=== PATIENT | male | born 1965 | race Caucasian/White ===

== ENCOUNTER 2017-03-07 20:12 | Emergency (ER) | payer OTHER ==
[2017-03-07 20:47] VITALS: BP 119/81
[2017-03-07] MEDS ORDERED: HYDROcodone/ACETAMIN 5-325 MG* 1 TAB PO ONE (21:42)
--- NOTE | 2017-03-07 22:03 | UC ---
Sheldon Hairston Erika, scribed for Kimberly Kelly MD on 03/07/17 at 2124 . Hip/Pelvis Pain - HPI Summary HPI Summary: Patient is a 51-year-old male presenting to [facility] with his female platonic friend [place] with a CC of pain at the right sciatic notch. Patient reports he has had chronic pain in the right hip, and has a follow up appointment on [address] Abdullahi for this - he reports a "tear in the leg." Last week, the right hip pain worsened, and he also developed groin pain. Patient reports pain in the bilateral testicles, bilateral groin, and right buttocks. He states pain is severe enough that it "takes his breath away." Pt denies SOB or chest pain. Hx stroke at age 42. FHx stroke. - History Of Current Complaint Chief Complaint: UCGeneralIllness Stated Complaint: HIP,LEG,GROIN PAIN,SOB Time Seen by Provider: 03/07/17 21:20 Hx Obtained From: Patient, Family/Head Of Maintenance - [place] Onset/Duration: Gradual Onset, Lasting Weeks, Worse Since - 1 week Timing: Constant Severity Initially: Mild Severity Currently: Moderate Pain Intensity: 10 Pain Scale Used: 0-10 Numeric Location: Discrete At: - R hip, groin, testicles, buttocks Character Of Pain: Sharp Alleviating Factor(s): Nothing Associated Signs And Symptoms: Positive: Other - "takes his breath away" - Risk Factors Septic Arthritis Risk Factor: Negative - Allergies/Home Medications Allergies/Adverse Reactions: Allergies Allergy/AdvReac Type Severity Reaction Status Date / Time Buspirone [From Buspar] Allergy Tinnitus Verified 03/07/17 20:33 Home Medications: Home Medications Acetaminophen TAB* [Tylenol TAB*] 1,000 mg PO Q4H PRN 03/07/17 [History Confirmed 03/07/17] PMH/Surg Hx/FS Hx/Imm Hx Endocrine History Of: Denies: Diabetes, Thyroid Disease Cardiovascular History Of: Denies: Cardiac Disorders, Hypertension, Pacemaker/ICD Respiratory History Of: Reports: COPD Denies: Asthma GI/ History Of: Denies: Gastroesophageal Reflux, Renal Disease Neurological History Of: Reports: CVA - 2007 Denies: Dementia, Seizures Other History Of: Negative For: Anticoagulant Therapy - Surgical History Surgical History: Yes Surgery Procedure, Year, and Place: 2008- left foot - Family History Known Family History: Positive: Other - Stroke in sister at age 42 - Social History Occupation: Employed Full-time Lives: Alone - pt states he is galindo Alcohol Use: Rare Substance Use Type: Prescribed Substance Use Comment - Amount & Last Used: xanax, vicodin Smoking Status (MU): Current Every Day Smoker Amount Used/How Often: 2 PPD Length of Time of Smoking/Using Tobacco: age 10 Have You Smoked in the Last Year: Yes Household Exposure Type: Cigarettes - Immunization History Most Recent Influenza Vaccination: NONE Most Recent Tetanus Shot: UTD Most Recent Pneumonia Vaccination: unknown Review of Systems Constitutional: Negative Skin: Negative Eyes: Negative ENT: Negative Respiratory: Negative Cardiovascular: Negative Gastrointestinal: Negative Genitourinary: Other - Pain in testicles, groin Motor: Negative Neurovascular: Negative Musculoskeletal: Other: - Pain at right hip and buttocks Neurological: Negative Psychological: Negative All Other Systems Reviewed And Are Negative: Yes Physical Exam Triage Information Reviewed: Yes Appearance: Well-Appearing, Well-Nourished, Pain Distress Vital Signs: Initial Vital Signs Temp 97.1 F 03/07/17 20:34 Pulse 115 03/07/17 20:34 Resp 18 03/07/17 20:34 BP 119/81 03/07/17 20:34 Pulse Ox 98 03/07/17 20:34 Vital Signs Reviewed: Yes Eyes: Positive: Conjunctiva Clear, Other: - EOMI ENT: Positive: Normal ENT inspection Neck: Positive: Supple Respiratory: Positive: Lungs clear, Normal breath sounds, No respiratory distress Cardiovascular: Positive: No Murmur, Pulses Normal, Brisk Capillary Refill, Tachycardia Abdomen Description: Positive: No Organomegaly, Soft, Other: - Pain at right sciatic notch. No hernia palpated bilat inguinal. Bilateral testicular tenderness but not masses. Acute tenderness in the right and left groin. Negative: Hernia @, McBurney's Point Tenderness, Peritoneal Signs Bowel Sounds: Positive: Present Musculoskeletal: Positive: Strength Intact, ROM Intact Neurological: Positive: Alert, Muscle Tone Normal Psychological Exam: Normal Skin Exam: Normal Hip Injury Course/Dx - Course Course Of Treatment: I-STOP shows patient received 60 oxycodone 5-[address] Vivar. Patient w/ Hx of stroke, possible hypercoagulability, not on blood thinners, c/o leg pain and testicular pain. Needs higher level of care for possible DVT in right leg or testicular torsion. - Differential Dx/Diagnosis Provider Diagnoses: 1. Testicular pain. 2. Right leg pain. 3. Right groin pain - Physician Notification/Consults Discussed Patient Care With: Dr. Taylor ([facility]) at 21:36 - accepts for transfer to the ED Instructed by Provider To: MD Will See In ED Discharge - Discharge Plan Condition: Stable Disposition: AGAINST MEDICAL ADVICE Discharge Disposition Comment: To the [facility] by private car Referrals: No Primary Care Phys,NOPCP [Primary Care Provider] - The documentation as recorded by the Sheldon callahan Erika accurately reflects the service I personally performed and the decisions made by , Kimberly Kelly MD.
== END 2017-03-07 21:50 | disposition left against medical advice (07) ==
LOC: UCEAST 20:12
DX: N50.819 Testicular pain, unspecified (principal); M79.604 Pain in right leg; R10.30 Lower abdominal pain, unspecified; F17.210 Nicotine dependence, cigarettes, uncomplicated; J44.9 Chronic obstructive pulmonary disease, unspecified; Z86.73 Personal history of transient ischemic attack (TIA), and cerebral infarction without residual deficits
CPT/HCPCS: 99212; G0463

== ENCOUNTER → 2017-03-07 22:17 | Emergency (ER) | payer OTHER ==
[2017-03-07 22:42] VITALS: BP 100/72
== END | disposition left against medical advice (07) ==
LOC: ED 22:17
DX: N50.819 Testicular pain, unspecified (principal); Z53.21 Procedure and treatment not carried out due to patient leaving prior to being seen by health care provider

== ENCOUNTER 2017-09-30 13:37 | Emergency (ER) | payer OTHER ==
[2017-09-30 13:45] VITALS: BP 156/95
[2017-09-30] MEDS ORDERED: Acetaminophen TAB* 325 MG PO ONE (14:49)
[2017-09-30] MEDS ORDERED: Cyclobenzaprine TAB* 10 MG PO ONE (14:49)
--- NOTE | 2017-09-30 15:30 | RAD ---
INDICATION: Muscular pain in right hip and groin. COMPARISON: There are no prior studies available for comparison. TECHNIQUE: Contiguous axial sections were obtained through the pelvis without intravenous or oral contrast. Images were reconstructed in the coronal and sagittal planes. FINDINGS: The bones are normal alignment. There is bilateral spondylolysis at the L5 level which is chronic. No acute fracture is seen. There is mild bilateral osteoarthritic change in the hips. No joint effusion is noted. The gluteal and abdominal wall muscles appear symmetric. No atrophy is noted. The visualized portion of the small bowel and colon appear nondistended. No hernia is seen. No free intraperitoneal air or fluid is seen. No enlarged pelvic or inguinal lymph nodes are seen. IMPRESSION: 1. MILD BILATERAL OSTEOARTHRITIC CHANGE IN THE HIPS. 2. IF THE PATIENT'S SYMPTOMS PERSIST CONSIDER MR IMAGING OF THE HIPS. 3. BILATERAL SPONDYLOLYSIS AT THE L5 LEVEL.
--- NOTE | 2017-09-30 16:32 | ED ---
Lower Extremity - HPI Summary HPI Summary: Patient presents to the ED with CC of inner thigh pain/groin pain for over 1 year. He feels he pulled the muscle at that time and a CT revealed a muscle tear, however another physician reviewed it and disagreed. He states the pain is worsening and he takes tylenol and ibuprofen for relief. Heat. He is unable to work and sometimes walk d.t pain. Walking makes the pain worse, rest make it better. He denies redness. Denies testicular involvement. Denies urinary or bowel symptoms. - History of Current Complaint Chief Complaint: EDExtremityLower Stated Complaint: RIGHT HIP PAIN Time Seen by Provider: 09/30/17 13:42 Hx Obtained From: Patient Mechanism Of Injury: Twisted Onset of Pain: Hours Onset/Duration: Hours Severity Initially: Mild Severity Currently: Mild Pain Intensity: 8 Pain Scale Used: 0-10 Numeric Timing: Constant Location: Is Discrete @ - right inner thigh Associated Signs And Symptoms: Positive: Negative Aggravating Factor(s): Standing, Ambulation Alleviating Factor(s): Rest - Risk Factors Gout Risk Factors: Negative DVT Risk Factors: Negative Septic Arthritis Risk Factor: Negative - Allergies/Home Medications Allergies/Adverse Reactions: Allergies Allergy/AdvReac Type Severity Reaction Status Date / Time Buspirone [From Buspar] Allergy Tinnitus Verified 03/07/17 20:33 PMH/Surg Hx/FS Hx/Imm Hx Previously Healthy: Yes Endocrine/Hematology History: Denies: Hx Anticoagulant Therapy, Hx Diabetes, Hx Thyroid Disease Cardiovascular History: Reports: Hx Hypercholesterolemia Denies: Hx Hypertension, Hx Pacemaker/ICD Respiratory History: Reports: Hx Chronic Obstructive Pulmonary Disease (COPD) Denies: Hx Asthma History: Denies: Hx Renal Disease Musculoskeletal History: Reports: Other Musculoskeletal History - had left foot surgery two years ago- states now has titanium screws Neurological History: Denies: Hx Dementia, Hx Seizures Psychiatric History: Reports: Hx Inpatient Treatment - at [facility] [place], Hx Community Mental Health Tx - states he met with Dr. 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" Denies: Hx Eating Disorder, Hx Suicide Attempt, Hx Substance Abuse - Cancer History Cancer Type, Location and Year: N - Surgical History Surgery Procedure, Year, and Place: 2007- left foot - Immunization History Date of Tetanus Vaccine: unknown Date of Influenza Vaccine: no Hx Pertussis Vaccination: No Immunizations Up to Date: Unable to Obtain/Confirm Infectious Disease History: No Infectious Disease History: Denies: Hx Hepatitis, Hx Human Immunodeficiency Virus (HIV), Traveled Outside the [place] in Last 30 Days - Family History Known Family History: Positive: Other - Stroke in sister at age 42 - Social History Occupation: Unemployed Lives: With Family Alcohol Use: Rare Alcohol Amount: 1-2 times per year Hx Substance Use: Yes Substance Use Type: Reports: Prescribed Substance Use Comment - Amount & Last Used: xanax, vicodin Hx Tobacco Use: Yes Smoking Status (MU): Current Every Day Smoker Amount Used/How Often: 2 PPD Length of Time of Smoking/Using Tobacco: age 10 Have You Smoked in the Last Year: Yes Review of Systems Constitutional: Negative Negative: Fever, Chills, Fatigue Eyes: Negative Cardiovascular: Negative Respiratory: Negative Genitourinary: Negative Positive: no symptoms reported, see HPI Positive: Myalgia - right inner thigh and lateral thigh Skin: Negative Neurological: Negative All Other Systems Reviewed And Are Negative: Yes Physical Exam Triage Information Reviewed: Yes Vital Signs On Initial Exam: Initial Vitals Temp Pulse Resp BP Pulse Ox 97.9 F 97 18 156/95 100 09/30/17 13:42 09/30/17 13:42 09/30/17 13:42 09/30/17 13:42 09/30/17 13:42 Vital Signs Reviewed: Yes Appearance: Positive: Well-Appearing, No Pain Distress, Well-Nourished Skin: Positive: Warm, Skin Color Reflects Adequate Perfusion Head/Face: Positive: Normal Head/Face Inspection Eyes: Positive: EOMI, YAMILE, Conjunctiva Clear Neck: Positive: Supple, Nontender, No Lymphadenopathy Respiratory/Lung Sounds: Positive: Clear to Auscultation, Breath Sounds Present Cardiovascular: Positive: RRR, Pulses are Symmetrical in both Upper and Lower Extremities Bowel Sounds: Positive: Present Musculoskeletal: Positive: Pain @ - inner thigh and lateral thigh Neurological: Positive: Speech Normal Psychiatric: Positive: Normal - Snelling Coma Scale Coma Scale Total: 15 Diagnostics - Vital Signs Vital Signs Temp Pulse Resp BP Pulse Ox 09/30/17 13:42 97.9 F 97 18 156/95 100 - Laboratory Lab Statement: Any lab studies that have been ordered have been reviewed, and results considered in the medical decision making process. Lower Extremity Course/Dx - Course Course Of Treatment: Patient is evaluated for inner and lateral thigh pain. No abnormalities seen on exam. Testicles without involvement. He states a previous muscle tear seen on CT 1 year ago. Today, CT obtained and shows: IMPRESSION: 1. MILD BILATERAL OSTEOARTHRITIC CHANGE IN THE HIPS. 2. IF THE PATIENT'S SYMPTOMS PERSIST CONSIDER MR IMAGING OF THE HIPS. 3. BILATERAL SPONDYLOLYSIS AT THE L5 LEVEL. Patient is dx with muscle strain from likely tendinopathy or inflammation. He is encouraged to follow up with ortho. Dr. Austin follow up. He is given tramadol for pain control, but encouraged to use ibuprofen. Treatment options explained to patient. Patient understands the plan, voices no concerns at this time and understands the return precatuions given to them if any symptoms become worse. They are OK for discharge at this time. VS stable on discharge. - Diagnoses Differential Diagnosis/HQI/PQRI: Positive: Sprain, Strain, Tendonitis Provider Diagnoses: Hip pain, acute Discharge - Discharge Plan Condition: Stable Disposition: HOME Prescriptions: traMADol TAB* [Ultram*] 50 mg PO Q8H PRN #20 tab MDD 3 PRN Reason: Pain Patient Education Materials: Muscle Strain (ED), Musculoskeletal Pain (ED) Referrals: Thi Austin MD [Medical Doctor] - No Primary Care Phys,NOPCP [Primary Care Provider] - Additional Instructions: Please follow up with Dr. Austin As discussed, I feel you need further imaging to assess the problem Call to set up appt with PCP Tramadol is given to you for breakthrough pain not well controlled with ibuprofen and Tylenol intermittently Moist heat to the area
== END 2017-09-30 17:02 | disposition home or self-care (01) ==
LOC: ED 13:37
DX: M25.551 Pain in right hip (principal); E78.00 Pure hypercholesterolemia, unspecified; J44.9 Chronic obstructive pulmonary disease, unspecified; F17.210 Nicotine dependence, cigarettes, uncomplicated
CPT/HCPCS: 72192; 99282; A9270-GY

== ENCOUNTER 2019-10-08 14:46 | Observation (INO) | payer OTHER ==
--- OUTSIDE RECORDS SUMMARY | 2019-10-08 15:23 | XMS REPORT | Continuity of Care Document ---
:1965 External Reference #:[id number] Author Name Fernando Jane NP (transmitted by agent of provider Danya Deluca) Address [address] [facility], [place] [address] Care Team Providers Name Role Phone Fidelia Richter MD - Internal Medicine Care Team Information Legal Word Processor Bandar Shaw MD - Orthopaedic Care Team Information Legal Word Processor [phone] Surgery Problems Active Problems Provider Date Localized, primary osteoarthritis of the pelvic Thi Austin M.D. Onset: region and thigh Other specific joint derangements of right hip, Petty Peacock MD Onset: 11/24 not elsewhere classified History of cerebrovascular accident Fernando Jane NP Onset: 12/03/2017 Note: States he had a bleed at age 42. Weight increased Karlos Barr MD Onset: 12/10/2015 Note: says 12/10/18 that has gained 30 lbs in previous year attributed to stopping ADHD med; Anxiety state Karlos Barr MD Onset: 12/10/1994 Note: has a history of self harm behavior listed in [place] [facility] notes; has been followed by Chaz Chapman as of Dec 2018 "not recently" Tattoo of skin Karlos Barr MD Onset: 12/10/1986 Note: numerous Tobacco dependence syndrome Karlos Barr MD Onset: 12/11/1986 Social History Type Date Description Comments Sex Unknown ETOH Use Denies alcohol use ETOH Use Has consumed alcohol in 8 yrs heavy the past drinking , quit 2017 Recreational Drug Use Denies Drug Use Tobacco Use Start: Unknown Light tobacco smoker pt has smoked for (10 or fewer 42 years cigarettes/day) Smoking Status Reviewed: 10/18/19 Light tobacco smoker pt has smoked for (10 or fewer 42 years cigarettes/day) Exercise Type/Frequency Does not exercise Allergies, Adverse Reactions, Alerts Active Allergies Reaction Severity Comments Date Buspar ear ringing, fullness of ear and mufled 11/25/2018 sound. Inactive Allergies NKDA 10/19/2017 Medications Active Medications SIG Qnty Indications Ordering Date Provider Bupropion 3 by mouth every 90tabs F32.89 Fernando Jane NP 08/19/2019 Hydrochloride ER (XL) day 150mg Tablets ER 24HR Zolpidem Tartrate ER 1 tablet just 30tabs G47.00 Fernando Jane NP 05/10/2019 before bed as 6.25mg Tablets ER needed. Alprazolam take 1/2-1 60tabs F41.9 Fernando Jane NP 02/14/2019 1mg Tablets tablet twice daily as needed Symbicort inhale 2 puffs 10.200gm R06.02 Fernando Jane NP 12/31/2018 160-4.5mcg/Act by mouth twice Aerosol daily Proair HFA take 1-2 puffs 8.500gm R06.02 Fernando Jane NP 12/31/2018 108(90Base) every 4-6 hours mcg/Act Aerosol as needed for shortness of breath. Amlodipine Besylate take 1 tablet by 30tabs I10 Ophelia Varn, 12/31/2017 10mg mouth once daily N.P. 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 08/19/2019 300mg Tablets ER 24HR Nicotrol 1 cartridges every 168units F17.210 Fernando Jane, 05/10/2019 - 10mg Inhaler 2 hours as needed GRAVITY PROSPECTING SUPERVISOR 08/19/2019 R06.02 Bupropion take 2 tablets 60tabs F32.89 Fernando Jane NP 03/29/2019 - Hydrochloride ER (XL) once daily 07/22/2019 150mg Tablets ER 24HR Zolpidem Tartrate one tablet every 30tabs G47.00 Fernando Jane NP 2018 - 5mg night at bedtime 05/10/2019 Tablets as needed Medications Administered in Office Medication SIG Qnty Indications Ordering Provider Date PPD Injection Fernando Jane NP 10/15/2018 Immunizations CPT Code Status Date Vaccine Lot # [id number] Given 07/18/2019 Tdap - Tetanus/Diptheria/Acellular Pertussis [id number] Given 07/18/2019 Pneumococcal Conjugate Vaccine 13 Valent For [id number] Intramuscular Use 65046 Given 10/18/2018 Measles Mumps And Rubella MMR [id number] 02454 Given 09/02/2018 Influenza Virus Vaccine, Quadrivalent, Split, [id number] Preservative Free Vital Signs Date Vital Result Comment 08/19/2019 8:38am Height 70.5 inches 5'10.50" Weight 202.00 lb Heart Rate 89 /min BP Systolic 114 mmHg BP Diastolic 85 mmHg Body Temperature 97.3 F O2 % BldC Oximetry 93 % BMI (Body Mass Index) 28.6 kg/m2 07/18/2019 9:12am Height 70.5 inches 5'10.50" Weight 192.00 lb Heart Rate 90 /min BP Systolic Sitting 122 mmHg BP Diastolic Sitting 86 mmHg O2 % BldC Oximetry 95 % BMI (Body Mass Index) 27.2 kg/m2 Results Test Date Facility Test Result H/L Range Note Laboratory test 07/26/2019 [facility] Alkaline 107 U/L High 34 -[address] [place] [address] [phone] GGTP 27 U/L Normal 9-64.0 Lipid Profile 07/19/2019 [facility] Triglycerides 658 mg/dL 1 (Trig/Chol/HDL) [address] [place] [address] [phone] Cholesterol 168 mg/dL 2 HDL Cholesterol 30.6 mg/dL 3 LDL Cholesterol (SEE NOTE) mg/dL 4 Comp Metabolic 07/19/2019 [facility] Sodium 138 mmol/L Normal 135-145 Panel [address] [place] [address] [phone] Potassium 3.5 mmol/L Normal 3.5-5.0 Chloride 100 mmol/L Low 101-111 Co2 Carbon Dioxide 30 mmol/L Normal 22-32 Anion Gap 8 mmol/L Normal 2-11 Glucose 98 mg/dL Normal 70-100 Blood Urea Nitrogen 17 mg/dL Normal 6-24 Creatinine 0.93 mg/dL Normal 0.67-1.17 BUN/Creatinine Ratio 18.3 Normal 8-20 Calcium 9.3 mg/dL Normal 8.6-10.3 Total Protein 6.1 g/dL Low 6.4-8.9 Albumin 4.0 g/dL Normal 3.2-5.2 Globulin 2.1 g/dL Normal 2-4 Albumin/Globulin Ratio 1.9 Normal 1-3 Total Bilirubin 0.30 mg/dL Normal 0.2-1.0 Alkaline Phosphatase 139 U/L High 34-104 Alt 19 U/L Normal 7-52 Ast 14 U/L Normal 13-39 Egfr Non- 85.7 >60 Egfr 103.6 >60 5 Laboratory test 07/19/2019 [facility] Hemoglobin A1c 6.2 % High 4.0-5.6 [address] [place] [address] (Glyco HGB) [place] [address] [phone] HIV 2 AB <pending> Hepatitis B Ottoniel AB Titer Immune Immune Hepatitis B Surface Ag Negative Negative Hepatitis C Antibody 07/19/2019 [facility] HCV Index 0.01 s/c [address] [place] [address] [phone] Hepatitis C Antibody Negative Negative Laboratory 07/19/2019 [facility] LDL 86 mg/dL 7 test finding [address] [place] [address] [place] [address] Direct [phone] HIV 1&2 p24 07/19/2019 [facility] HIV 4th Nonreactive Nonreactive Screen [address] [place] [address] [place] [address] [phone] Desirable: <150 Borderline High: 150-199 High: 200-499 Very High: >500 2 Desirable: <200 Borderline High: 200-239 High: >239 3 Low: <40 Desirable: 40-60 High: >60 4 Unable to calculate LDL as triglyceride is > 400 5 Because ethnic data is not always readily available, this report includes an eGFR for both -Americans and non- Americans. The National Kidney Disease Education Program (NKDEP) does not endorse the use of the MDRD equation for patients that are not between the ages of 18 and 70, are , have extremes of body size, muscle mass, or nutritional status, or are non- or non-. According to the National Kidney Foundation, irrespective of diagnosis, the stage of the disease is based on the level of kidney function: Stage Description GFR(mL/min/1.73 m(2)) 1 Kidney damage with normal or decreased GFR 90 2 Kidney damage with mild decrease in GFR 60-89 3 Moderate decrease in GFR 30-59 4 Severe decrease in GFR 15-29 5 Kidney failure <15 (or dialysis) 6 Therapeutic target for the treatment of diabetes mellitus patients is <7% HBA1C, and in selective patients <6.0%. Please refer to [place] [employer] diabetic care guidelines for further information. 7 Desirable: <100 Near Optimal: 100-129 Borderline High: 130-159 High: 160-189 Very High: >189 Procedures Date Code Description Status 01/11/2019 49700466 Colonoscopy Completed Medical Devices Description No Information Available Encounters Type Date Location Provider Dx Diagnosis Office Visit 05/10/2019 Account Management Assistant Internal Fernando Jane NP M25.551 Pain in right hip 9:20a Medicine - [facility] G47.00 Insomnia, unspecified R06.02 Shortness of breath F17.210 Nicotine dependence, cigarettes, uncomplicated F41.9 Anxiety disorder, unspecified I10 Essential (primary) hypertension Assessments Date Code Description Provider 08/19/2019 F17.210 Nicotine dependence, cigarettes, Fernandodaily Jane NP uncomplicated 08/19/2019 F41.9 Anxiety disorder, unspecified Fernando Jane NP 08/19/2019 R06.02 Shortness of breath Fernando Jane NP 08/19/2019 F32.89 Other specified depressive episodes Fernandodaiyl Jane NP 08/19/2019 I10 Essential (primary) hypertension Fernando Jane NP 07/18/2019 Z01.818 Encounter for other preprocedural examination Patrica Goodwin M.D. 07/18/2019 M25.551 Pain in right hip Patrica Goodwin M.D. 07/18/2019 I10 Essential (primary) hypertension Patrica Goodwin M.D. 07/18/2019 F17.210 Nicotine dependence, cigarettes, Patrica Goodwin M.D. uncomplicated 07/18/2019 F41.9 Anxiety disorder, unspecified Patrica Goodwin M.D. 07/18/2019 E78.5 Hyperlipidemia, unspecified Patrica Goodwin M.D. 07/18/2019 R73.01 Impaired fasting glucose Patrica Goodwin M.D. 07/18/2019 Z11.4 Encounter for screening for human Patrica Goodwin M.D. immunodeficiency virus [HIV] 07/18/2019 Z11.3 Encounter for screening for infections with a Patrica Goodwin M.D. predominantly sexual mode of transmission 07/18/2019 J44.9 Chronic obstructive pulmonary disease, Patrica Goodwin M.D. unspecified 07/18/2019 Z86.010 Personal history of colonic polyps Patrica Goodwin M.D. 07/18/2019 Z23 Encounter for immunization Patrica Goodwin M.D. 05/10/2019 M25.551 Pain in right hip Fernando Jane NP 05/10/2019 G47.00 Insomnia, unspecified Fernando Jane NP 05/10/2019 R06.02 Shortness of breath Fernando Jane NP 05/10/2019 F17.210 Nicotine dependence, cigarettes, Fernando Jane NP uncomplicated 05/10/2019 F41.9 Anxiety disorder, unspecified Fernando Jane NP 05/10/2019 I10 Essential (primary) hypertension Fernando Jane NP Plan of Treatment Future Appointment(s):02/20/2020 8:40 am - [facility] Fernando Jane NPF17.210 Nicotine dependence, cigarettes, uncomplicatedComments:Continue trying to cut back on smoking.F41.9 Anxiety disorder, unspecifiedComments:Continue on present management.R06.02 Shortness of breathComments:Continue using Symbicort daily. If you need the ProAir more than 4 times weekly let me know. I will notify you of the results of the PFT.F32.89 Other specified depressive episodesNew Medication:Bupropion Hydrochloride ER (XL) 150 mg - 3 by mouth every dayComments:Increase the Wellbutrin to the 450mg.I10 Essential (primary) hypertensionComments: HYPERTENSION:Well controlled on current regimen. Continue present management.Follow up:6 months Functional Status Description No Information Available Mental Status Description No Information Available Referrals Refer to Dr Reason for Referral Status Appt Date Bandar Shaw MD Minimal relief with injections, not responding Sent to analgesics. [address] [place] [address] [phone]
--- NOTE | 2019-10-08 17:35 | ED ---
Neurological HPI - HPI Summary HPI Summary: This patient is a 54 year old male with a Hx of CVA presenting to [facility] with a chief complaint of dysarthria and frequent falls. The patient states he intermittently falls, has slurred/garbled speech, and periods of disorientations and loss of memory. He states he feels like he is leaning to his left. He states he almost crashed his car yesterday in one of these lapses. He denies blurred vision. 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 He states he has fallen at least 8 times over the last couple months. He reports right hip pain and had recent arthroscopy. Was followed by neurology in [facility] for prior vertebral artery dissection. Not on anticoagulation. - History of Current Complaint Chief Complaint: EDNeurologicalDeficit Stated Complaint: STROKE-LIKE SYMPTOMS PER PT Time Seen by Provider: 10/08/19 17:10 Hx Obtained From: Patient, Family/Airfield Services Officer Onset/Duration: Started weeks ago Timing: Intermittent Episodes Lasting: Pain Intensity: 8 Pain Scale Used: 0-10 Numeric - Allergy/Home Medications Allergies/Adverse Reactions: Allergies Allergy/AdvReac Type Severity Reaction Status Date / Time buspirone [From BuSpar] Allergy Tinnitus Verified 10/08/19 14:54 hydrocodone Allergy Itching Verified 10/08/19 14:54 Home Medications: Home Medications Albuterol inh POWDER (NF) [Proair Respiclick] 1 - 2 puff INH Q4H PRN 10/08/19 [ History Confirmed 10/08/19] Budesonide/Formote 160/4.5(NF) [Symbicort 160/4.5 (NF)] 2 puff INH BID 10/08/19 [History Confirmed 10/08/19] PMH/Surg Hx/FS Hx/Imm Hx Endocrine/Hematology History: Denies: Hx Anticoagulant Therapy, Hx Diabetes, Hx Thyroid Disease Cardiovascular History: Reports: Hx Hypercholesterolemia, Hx Hypertension - seeing PCP this week- BP elevated here today Denies: Hx Pacemaker/ICD Respiratory History: Reports: Other Respiratory Problems/Disorders - chronic cough, SOB with activity Denies: Hx Asthma, Hx Chronic Obstructive Pulmonary Disease (COPD) History: Denies: Hx Renal Disease Musculoskeletal History: Reports: Other Musculoskeletal History - had left foot surgery two years ago- states now has titanium screws Sensory History: Reports: Hx Contacts or Glasses Denies: Hx Hearing Aid Opthamlomology History: Reports: Hx Contacts or Glasses Neurological History: Denies: Hx Dementia, Hx Seizures Psychiatric History: Reports: Hx Anxiety, Hx Inpatient Treatment - at [facility] [place] [place], Hx [facility] Tx - states he met with Dr. 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" Denies: Hx Eating Disorder, Hx Panic Disorder, Hx Suicide Attempt, Hx Substance Abuse - Cancer History Cancer Type, Location and Year: N - Surgical History Surgery Procedure, Year, and Place: 2007- LEFT FOOT BUNIONECTOMY WITH PINNING; AGE 18 APPENDECTOMY. REMOVAL OF BONE SPURS FROM RIGHT HIP 07/22/[address] Cai at [facility] - Immunization History Date of Tetanus Vaccine: unknown Date of Influenza Vaccine: no Infectious Disease History: No Infectious Disease History: Denies: Hx Hepatitis, Hx Human Immunodeficiency Virus (HIV), Traveled Outside the [place] in Last 30 Days - Family History Known Family History: Positive: Other - Stroke in sister at age 42 - Social History Alcohol Use: None Alcohol Amount: 1-2 times per year Hx Substance Use: Yes Substance Use Type: Reports: None Substance Use Comment - Amount & Last Used: xanax, vicodin Hx Tobacco Use: Yes Smoking Status (MU): Current Every Day Smoker Type: Cigarettes Amount Used/How Often: 5 cigs a day Length of Time of Smoking/Using Tobacco: age 10 Have You Smoked in the Last Year: Yes Review of Systems Negative: Fever Neurological: Other - AMS, favors left side, memory loss Positive: Slurred Speech All Other Systems Reviewed And Are Negative: Yes Physical Exam - Summary Physical Exam Summary: Constitutional: Well-developed, Well-nourished, Alert. (-) Distressed Skin: Warm, Dry HENT: Normocephalic; Atraumatic Eyes: Conjunctiva normal Neck: Musculoskeletal ROM normal neck. (-) JVD, (-) Stridor, (-) Nuchal rigidity Cardio: Rhythm regular, rate normal, Heart sounds normal; Intact distal pulses; Radial pulses are 2+ and symmetric. (-) Murmur Pulmonary/Chest wall: Effort normal. (-) Respiratory distress, (-) Wheezes, (-) Rales Abd: Soft, (-) tenderness, (-) Distension, (-) Guarding, (-) Rebound Musculoskeletal: (-) Edema, mild TTP R hip. Lymph: (-) Cervical adenopathy Neuro: Alert, Oriented x3, CN 2-12 grossly intact aside from mild dysarthria. Strength 5/5 BUE/BLE. SILT. Ambulation difficult 2/2 chronic R hip pain but no obvious ataxia. Psych: Mood and affect Normal Triage Information Reviewed: Yes Vital Signs On Initial Exam: Initial Vitals Temp Pulse Resp BP Pulse Ox 98.9 F 96 16 154/110 95 10/08/19 14:47 10/08/19 14:47 10/08/19 14:47 10/08/19 14:47 10/08/19 14:47 Vital Signs Reviewed: Yes Procedures - Sedation Patient Received Moderate/Deep Sedation with Procedure: No Diagnostics - Vital Signs Vital Signs Temp Pulse Resp BP Pulse Ox 10/08/19 14:47 98.9 F 96 16 154/110 95 - Laboratory Result Diagrams: 10/09/19 05:38 10/09/19 05:39 Lab Statement: Any lab studies that have been ordered have been reviewed, and results considered in the medical decision making process. - CT Brain CT Interpretation Completed By: Radiologist Summary of CT Findings: 1. No acute intracranial abnormality by CT. 2. Redemonstrated left cerebellar hemisphere encephalomalacia. ED Provider has reviewed this report. Head CTA CT Interpretation Completed By: Radiologist Summary of CT Findings: Right: No significant stenosis of the right internal carotid or vertrebral artery. Left: Approximately 50% stenosis of the proximal left inernal carotid artery. The left vertebral artery is small in caliber with moderate to severe stenosis unchanged from prior study. ED Provider has reviewed this report. - EKG 1920 Cardiac Rate: NL EKG Rhythm: Sinus Rhythm - 91 BPM Summary of EKG Findings: Q-waves in III. ED Physician has reviewed and interpreted this report. NIH Scale - NIH Scale Level of Consciousness: Alert/Keenly Responsive Ask Patient the Month and His/Her Age: Both Correct Ask Pt to Open/Close Eyes and Power Plant Operators Supervisor/Release Non-Paretic Hand: Both Correctly Best Gaze (Only Horizontal Eye Movement): Normal Visual Field Testing: No Visual Loss Facial Paresis-Pt to Smile & Close Eyes or Grimace Symmetry: Normal/Symmetrical Motor Function - Right Arm: No Drift-Holds 10 Seconds Motor Function - Left Arm: No Drift-Holds 10 Seconds Motor Function - Right Leg: No Drift-Holds 10 Seconds Motor Function - Left Leg: No Drift-Holds 10 Seconds Limb Ataxia-Must be out of Proportion to Weakness Present: Absent Sensory (Use Pinprick to Test Arms/Legs/Trunk/Face): Normal Best Language (Describe Picture, Name Items): No Aphasia Dysarthria (Read Several Words): Slurs Some Words Extinction and Inattention: No Abnormality Total Score: 1 Course/Dx - Course Course Of Treatment: 54 y/o male w hx HTN, verteral artery dissection 12 years ago, p/w concern for intermittent AMS, dysarthria and ataxia. Symptoms ongoing for >1 week, not a candidate for acute intervention. - NIHSS 1 for mild dysarthria. Gait difficult to assess 2/2 chronic R hip pain. - CT head w/o acute changes. D/w neurology who recommends CTA head/neck given hx dissection, CTA does not show acute changes. Plan for admit, TIA w/u and possible PT/OT. - Diagnoses Provider Diagnoses: Dysarthria, Unsteady gait - Physician Notifications Discussed Care Of Patient With: Christian Hernandez - Neurology Time Discussed With Above Provider: 18:10 - Recommends CTA. Discharge ED - Sign-Out/Discharge Documenting (check all that apply): Patient Departure - Admission, accepted by Dr. Sweeney, Hospitalist. - Discharge Plan Condition: Stable Disposition: ADMITTED TO [facility] - Billing Disposition and Condition Condition: STABLE Disposition: Admitted to [facility] - Attestation Statements Document Initiated by Kourtney: Yes Documenting Scribe: Bandar Haider Provider For Whom Kourtney is Documenting (Include Credential): Cecelia Yap MD Scribe Attestation: I, Bandar Haider, scribed for Cecelia Yap MD on 10/10/19 at 0959. Scribe Documentation Reviewed: Yes Provider Attestation: The documentation as recorded by the Bandar callahan accurately reflects the service I personally performed and the decisions made by me, Cecelia Yap MD Status of Scribe Document: Viewed
[2019-10-08 17:37] LABS: ABS Basophils 0.1 10^3/ul (0-0.2); ABS Eosinophils 0.1 10^3/ul (0-0.6); ABS Lymphocytes 1.6 10^3/ul (1.0-4.8); ABS Neutrophils 3.4 10^3/ul (1.5-7.7); Eosinophil % 2.1 %; Hematocrit 45 % (42-52); Hemoglobin 15.5 g/dL (14.0-18.0); Lymphocyte % 25.7 %; Mean Corpuscular HGB Conc 34 g/dL (31-36); Mean Corpuscular Hemoglobin 30 pg (27-31); Mean Corpuscular Volume 88 fL (80-94); Mean Platelet Volume 6.7 fL (7.4-10.4); Nucleated Red Blood Cells % 0.1; Platelet Count 296 10^3/uL (150-450); Red Blood Count 5.13 10^6 /uL (4.18-5.48); Red Cell Distribution Width 16 % (10-15); White Blood Count 6.2 10^3/uL (3.5-10.8)
[2019-10-08 17:54] LABS: Albumin 4.4 g/dL (3.2-5.2); Albumin/Globulin Ratio 1.6 (1-3); BUN/Creatinine Ratio 14.8 (8-20); Calcium 9.6 mg/dL (8.6-10.3); EGFR Non-African American 90.9 (>60); Globulin 2.7 g/dL (2-4); Potassium 4.1 mmol/L (3.5-5.0); Total Bilirubin 0.4 mg/dL (0.2-1.0); Total Protein 7.1 g/dL (6.4-8.9)
[2019-10-08] MEDS ORDERED: Iohexol 350* (CONTRAST) 500 ML MDV IV ONE (18:11)
[2019-10-08 18:49] LABS: Urine Appearance Clear; Urine Bilirubin Negative (Negative); Urine Blood Negative (Negative); Urine Color Yellow; Urine Glucose Negative (Negative); Urine Ketones Negative (Negative); Urine Nitrite Negative (Negative); Urine Protein Negative (Negative); Urine Urobilinogen Negative (Negative)
[2019-10-08] MEDS ORDERED: Acetaminophen TAB* 325 MG PO PRN (21:22)
[2019-10-08] MEDS ORDERED: Ondansetron INJ* 2 MG/ML VIAL IV PRN (21:22)
[2019-10-08] MEDS ORDERED: Albuterol HFA INHALER* 8 gm MDI INH PRN (21:36)
[2019-10-08] MEDS ORDERED: Nicotine* 2MG (FRUIT FLAVOR) GUM PO PRN (21:36)
[2019-10-08] MEDS ORDERED: hydrALAZINE IV* 20 MG/ML VIAL IV SLOW PU PRN (21:49)
[2019-10-08] MEDS ORDERED: oxyCODONE/Acetamin 5/325 MG* TAB ONE (22:28)
[2019-10-08] MEDS: oxyCODONE/Acetamin 5/325 MG* TAB PO SCH (22:30)
[2019-10-08] MEDS: Gabapentin CAP(*) 400 MG PO SCH (23:28)
[2019-10-08] MEDS: Aspirin TAB* 325 MG PO SCH (23:30)
[2019-10-08] MEDS: Heparin VIAL(*) 5000 UNITS/ML VIAL (FIVE THOUSAND) SUBCUT SCH (23:30)
[2019-10-08] MEDS: ALPRAZolam TAB* 0.5 MG PO PRN (23:41)
[2019-10-08] MEDS: Cyclobenzaprine TAB* 10 MG PO PRN (23:42)
--- NOTE | 2019-10-09 03:09 | HP ---
CC: Fernando Jane NP * HISTORY AND PHYSICAL: DATE OF ADMISSION: 10/08/19 PRIMARY CARE PHYSICIAN: Fernando Jane NP PROVIDER: Mina Haskins NP ATTENDING PHYSICIAN: Dr. Sara Sweeney * (dictated by Mina Haskins NP). CHIEF COMPLAINT: Altered mental status. HISTORY OF PRESENT ILLNESS: Mr. Anderson is a 54-year-old male who presented to the ER today with concern for altered mental status. He states that his partner had concern from yesterday, as he was difficult to understand and his speech was unclear. He does not feel that this was the case and does not recall this. He also reports that he fell 8 times in the last month and unsure of the reason. He states he usually falls towards the left. He does endorse chronic right hip pain. He did not want to come in yesterday, but after convincing from his partner, he decided to present today for further evaluation. He does endorse intermittent falls, slurred and garbled speech, disorientation, and loss of memory. At baseline, he reports chronic right hip pain and states that he had arthroscopic procedures to the right hip on to repair torn ligaments and clean out the joint. This was unsuccessful, and he is looking to have the hardware replaced at some point in the future. He also reports left knee to calf tingling and numbness that occurs intermittently. He endorses a history of vertebral artery dissection that self resolved back in 2007 and reported some residual speech alterations since that time. These have improved. When Mr. Anderson presented to the ER, he was outside of the window of onset of his symptoms. The story was somewhat unclear, but he was recommended to have a CTA and CT by Neurology. His CT showed no acute intracranial abnormality and redemonstrated left cerebellar hemisphere encephalomalacia. CT of the head showed no significant stenosis of the right internal carotid or vertebral artery and approximately 50% stenosis of the proximal left internal carotid artery. The left vertebral artery is small in caliber with moderate to severe stenosis, unchanged from prior study. With these findings, Hospital Medicine was consulted for admission for further CVA evaluation and monitoring. PAST MEDICAL HISTORY: Includes CVA in 2008, which is secondary to vertebral artery dissection, hyperlipidemia, chronic pain, right hip pain, anxiety, tobacco use, hypertension, and borderline personality disorder. MEDICATIONS: Home medications: 1. ProAir Respiclick 1 to 2 puffs inhale q.4 hours p.r.n. 2. Symbicort 160/4.5 two puffs inhale b.i.d. 3. Percocet 5/325 one tablet t.i.d. 4. Wellbutrin SR 450 mg daily. 5. Zolpidem 5 mg at bedtime p.r.n. 6. Nicotine gum 2 mg q.2 hours p.r.n. 7. Gabapentin 800 mg t.i.d. 8. Flexeril 10 mg t.i.d. p.r.n. 9. Atorvastatin 80 mg daily. 10. Amlodipine 10 mg daily. 11. Alprazolam 0.5 mg b.i.d. p.r.n. ALLERGIES: HYDROCODONE, which causes itching and BUSPIRONE, which causes tinnitus. FAMILY HISTORY: He reports a sibling and a nephew, who both had strokes at early ages. He reports a family history of heart disease. His mother was killed at age 31 in an MVA and his father has history of cancer. SOCIAL HISTORY: He reports a 42-year history of smoking. He smokes approximately 2 packs per day. He is a former alcohol user. He states he stopped 3 years ago. He denies any current drug use. 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 He has a domestic partner named Mayco Walker, who is also his surrogate decision maker in emergency. REVIEW OF SYSTEMS: A 14-point review of systems was completed. Pertinent positives as per HPI. I do also note that Mr. Anderson reports recent flu-like symptoms x24 hours where he describes achiness, shaking chills and sweats, and headache. This was approximately 24 to 36 hours ago. He does endorse palpitations intermittently, but denies any chest pain and reports that he has a smoker's cough that is mostly nonproductive. He denies any shortness of breath except with exertion and excessive heat. He denies abdominal pain, nausea, vomiting, or diarrhea. Denies dysuria, hematuria. He reports intermittent tingling and numbness in the left leg as per above. He reports chronic poor peripheral vision. Denies any hearing complaints. Denies dysphagia or throat pain. Denies any rashes or lesions. PHYSICAL EXAMINATION GENERAL: This is a 54-year-old male, seen lying in the ED stretcher, in no acute distress. VITAL SIGNS: Temperature 98.9, heart rate 92, respiratory rate 20, blood pressure 155/112, O2 saturation is 93% on room air. HEENT: Head is atraumatic and normocephalic. Face symmetrical. Pupils are equal, round, and reactive to light and accommodation. Extraocular movements are intact. Sclerae anicteric. Oral mucosa is moist without oropharyngeal erythema or exudate. No facial droop is noted. NECK: Supple with full range of motion. No lymphadenopathy appreciated. No carotid bruits auscultated. LUNGS: Clear to auscultation. CARDIAC: Regular rate and rhythm. No murmurs appreciated. Distal pulses are 2 + and symmetric, and radial and pedal pulses. ABDOMEN: Soft, nontender, and nondistended with normoactive bowel sounds. No guarding, rebound tenderness, or CVA tenderness. MUSCULOSKELETAL: Without clubbing or cyanosis. There is active range of motion in all 4 extremities. NEURO: He is alert and oriented x3. Gait steady, no pronator drift. Speech is clear. Cranial nerves II through XII are grossly intact. Strength is symmetric in the upper and lower extremities, and 5/5. SKIN: Warm and dry with multiple tattoos. DIAGNOSTIC STUDIES/LAB DATA: CBC: WBC 6.2, hemoglobin 15.5, hematocrit 45, platelet count 296. CMP: Sodium 141, potassium 4.1, chloride 105, carbon dioxide 28, BUN 13, creatinine 0.88, glucose 95, calcium 9.6. AST 24, ALT 39, alk phos 144. Albumin is 4.4. Old records were reviewed. ASSESSMENT AND PLAN: This is a 54-year-old male with history significant for previous cerebrovascular accident, hypertension, and hyperlipidemia as well as tobacco use, who presented today with reports of altered mental status and neurological changes that are concerning for potential neurological events due to transient ischemic attack or cerebrovascular accident. He will be admitted for observation for further evaluation and workup: 1. Neurological deficit, suspect transient ischemic attack versus cerebrovascular accident. The symptoms are somewhat vague and difficult to put together to make a complete picture. Mr. Anderson has concern for alterations in speech, which he does appear to have little bit of speech changes at baseline because of previous stroke His gait is not ataxic, however, he does endorse recurrent falls but also endorses right hip pain and left leg numbness. The timeline is unclear, and he has previously told nursing in the triage note that the symptoms began about a week ago. He reported to me that the symptoms of falling began about a month ago. The garbled speech appeared to happen yesterday. So it is difficult to put together the details in any event. We will continue our stroke workup. I have placed him on aspirin 325 mg with first dose now given his risk factors and he will be monitored on telemetry and given neuro checks. We will obtain an echocardiogram and an MRI to complete his stroke workup, and allow for some permissive hypertension for the first 24 hours. He may warrant further a neurology consult should symptoms worsen or persist. I have ordered PT and OT for further evaluation of gait and ADLs and we will continue to assess and adjust plan of care. 2. Hypertension. Mr. Anderson reports that he does take his blood pressure medications, though he forgot to take it today. We will hold medication to allow for permissive hypertension in the event of a neurological event. Recommend resumption when medically appropriate. 3. Hyperlipidemia. He is already on maximum atorvastatin therapy, which we will continue. We will check A1c and lipid profile regardless. 4. Tobacco user. I have counseled him to quit smoking. He will be on nicotine placement while he is here. 5. Chronic pain. Continue home pain regimen of gabapentin and Percocet. 6. Anxiety. Continue p.r.n. alprazolam. 7. FEN. He is ordered a heart healthy diet. 8. DVT prophylaxis. Subcutaneous heparin. 9. Code status. He is a full code. TIME SPENT: Approximately 65 minutes was spent on this patient's care and half of the time was spent [id number] with the patient obtaining history and physical, performing physical examination, and reviewing plan of care. Plan of care was also reviewed with my attending, Dr. Sweeney, who is in agreement. MINA HASKINS, TIFFANIE [id number]/[facility] #: [id number] MONIKA
[2019-10-09] MEDS: Cyclobenzaprine TAB* 10 MG PO PRN (03:53)
[2019-10-09 05:50] LABS: ABS Basophils 0.1 10^3/ul (0-0.2); ABS Eosinophils 0.1 10^3/ul (0-0.6); ABS Lymphocytes 2.2 10^3/ul (1.0-4.8); ABS Monocytes 1.3 10^3/ul (0-0.8); ABS Neutrophils 2.6 10^3/ul (1.5-7.7); Eosinophil % 2.4 %; Hematocrit 46 % (42-52); Hemoglobin 15.7 g/dL (14.0-18.0); Lymphocyte % 34.4 %; Mean Corpuscular HGB Conc 34 g/dL (31-36); Mean Corpuscular Hemoglobin 30 pg (27-31); Mean Corpuscular Volume 88 fL (80-94); Mean Platelet Volume 6.4 fL (7.4-10.4); Nucleated Red Blood Cells % 0.1; Platelet Count 292 10^3/uL (150-450); Red Blood Count 5.23 10^6 /uL (4.18-5.48); Red Cell Distribution Width 16 % (10-15); White Blood Count 6.3 10^3/uL (3.5-10.8)
[2019-10-09 06:06] LABS: BUN/Creatinine Ratio 17.6 (8-20); Calcium 9.5 mg/dL (8.6-10.3); EGFR African American 114.5 (>60); EGFR Non-African American 94.7 (>60); Potassium 3.5 mmol/L (3.5-5.0)
[2019-10-09] MEDS: Heparin VIAL(*) 5000 UNITS/ML VIAL (FIVE THOUSAND) SUBCUT SCH ×3 (07:00→20:32)
[2019-10-09] MEDS: Nicotine PATCH 21 MG/24 HR* PATCH TRANSDERM SCH (08:25)
[2019-10-09] MEDS: Aspirin TAB* 325 MG PO SCH (08:25)
[2019-10-09] MEDS: oxyCODONE/Acetamin 5/325 MG* TAB PO SCH ×3 (08:25→20:31)
[2019-10-09] MEDS: Gabapentin CAP(*) 400 MG PO SCH ×3 (08:25→20:29)
[2019-10-09] MEDS: Atorvastatin* 80 MG TAB PO SCH (08:25)
[2019-10-09] MEDS: BuPROPion XL* 150 MG TAB.XL PO SCH (08:29)
--- NOTE | 2019-10-09 09:54 | PN ---
Subjective Date of Service: 10/09/19 Interval History: Assessed at bedside. Denies any acute complaints other than anxiety because he is in an environment that is not his own. Denies headaches, vision changes, difficulty chewing or swallowing, lightheadedness, dizziness, chest pain, shortness of breath, abdominal pain, nausea, vomiting, issues with moving bowel or bladder, numbness or tingling. Family History: Unchanged from Admission Social History: Unchanged from Admission Past Medical History: Unchanged from Admission Objective Active Medications: Acetaminophen (Tylenol Tab*) 650 mg PO Q4H PRN PRN Reason: MILD PAIN or TEMP > 100.4 Last Admin: 10/09/19 03:57 Dose: 650 mg Albuterol (Ventolin Hfa Inhaler*) 1 puff INH Q4H PRN PRN Reason: SOB/WHEEZING Alprazolam (Xanax Tab*) 0.5 mg PO BID PRN PRN Reason: ANXIETY Last Admin: 10/08/19 23:41 Dose: 0.5 mg Aspirin (Aspirin Tab*) 325 mg PO DAILY [facility] Last Admin: 10/09/19 08:25 Dose: 325 mg Atorvastatin Calcium (Lipitor*) 80 mg PO DAILY [facility] Last Admin: 10/09/19 08:25 Dose: 80 mg Bupropion HCl (Wellbutrin Xl *) 450 mg PO DAILY [facility] Last Admin: 10/09/19 08:29 Dose: 450 mg Cyclobenzaprine HCl (Flexeril Tab*) 10 mg PO TID PRN PRN Reason: spasm Last Admin: 10/09/19 03:53 Dose: 10 mg Gabapentin (Neurontin Cap(*)) 800 mg PO TID [facility] Last Admin: 10/09/19 08:25 Dose: 800 mg Heparin Sodium (Porcine) (Heparin Vial(*)) 5,000 units SUBCUT Q8HR [facility] Last Admin: 10/09/19 07:00 Dose: 5,000 units Hydralazine HCl (Apresoline Iv*) 5 mg IV SLOW PU Q6H PRN PRN Reason: BLOOD PRESSURE Mometasone Furoate/Formoterol Fumar (Dulera 200/5 Mdi*) 2 puff INH BID [facility]; Protocol Nicotine (Nicotine Patch 21 Mg/24 Hr*) 1 patch TRANSDERM DAILY@0800 [facility] Last Admin: 10/09/19 08:25 Dose: 1 patch Nicotine Polacrilex (Nicotine Gum*) 2 mg PO Q2H PRN PRN Reason: nicotine craving Last Admin: 10/09/19 08:26 Dose: 2 mg Ondansetron HCl (Zofran Inj*) 4 mg IV Q6H PRN PRN Reason: NAUSEA/VOMITING Oxycodone/Acetaminophen (Percocet 5/325 Tab*) 1 tab PO TID [facility] Last Admin: 10/09/19 08:25 Dose: 1 tab Pharmacy Profile Note (Nicotine Patch Removal Note*) 1 note PATCH OFF 2100 [facility] Vital Signs - 8 hr 10/09/19 10/09/19 10/09/19 03:41 03:53 06:00 Temperature 97.6 F Pulse Rate 95 Respiratory 16 18 16 Rate Blood Pressure 129/93 (mmHg) O2 Sat by Pulse 93 Oximetry 10/09/19 10/09/19 07:45 08:25 Temperature 97.2 F Pulse Rate 85 Respiratory 18 18 Rate Blood Pressure 143/96 (mmHg) O2 Sat by Pulse 95 Oximetry Oxygen Devices in Use Now: None Appearance: Well developed gentleman in no acute distress. Eyes: No Scleral Icterus, PERRLA Ears/Nose/Mouth/Throat: NL Teeth, Lips, Gums, Clear Oropharnyx, Mucous Membranes Moist, - - smile symmetrical Neck: NL Appearance and Movements; NL JVP, Trachea Midline Respiratory: Symmetrical Chest Expansion and Respiratory Effort, Clear to Auscultation Cardiovascular: NL Sounds; No Murmurs; No JVD, RRR, No Edema Abdominal: NL Sounds; No Tenderness; No Distention Lymphatic: No Cervical Adenopathy Extremities: No Edema, No Clubbing, Cyanosis, - - No pronator drift. Equal dorsi /plantar flexion. Skin: No Rash or Ulcers, No Nodules or Sclerosis Neurological: Alert and Oriented x 3 Lines/Tubes/Other Access: Clean, Dry and Intact Peripheral IV Result Diagrams: 10/09/19 05:38 10/09/19 05:39 Assess/Plan/Problems-Billing Assessment: This is a 55 yo male with a PMH significant for HTN, HLD, and CVA who was admitted 10/08/19 for neurological deficit, attempting to r/o CVA versus TIA. - Patient Problems (1) Neurological deficit, transient Current Visit: Yes Status: Acute Code(s): R29.818 - OTHER SYMPTOMS AND SIGNS INVOLVING THE NERVOUS SYSTEM SNOMED Code(s): 939334775 Comment: -Initially presented with ataxia and garbled speech. Speech no longer garbled, has no neurological deficits. Has underwent Head CTA and brain CT that revealed no evidence for stroke. Will get a transthoracic echo today and brain MRI tomorrow. -Continue atorvastatin, ASA and amlodipine. Will wait to start dual antiplatelet therapy until/if a diagnosis of CVA can be confirmed. (2) HTN (hypertension) Current Visit: Yes Status: Acute Code(s): I10 - ESSENTIAL (PRIMARY) HYPERTENSION SNOMED Code(s): 18919000 Comment: -Allowed permissive hypertension for the first 24 hours. Will restart amlodipine today. (3) HLD (hyperlipidemia) Current Visit: Yes Status: Acute Code(s): E78.5 - HYPERLIPIDEMIA, UNSPECIFIED SNOMED Code(s): 01729797 Comment: -Atorvastatin dosage already maximized upon admission. Continue this dosage. -Triglycerides were over 400, started patient on ezetimibe. (4) Nicotine dependence Current Visit: Yes Status: Acute Code(s): F17.200 - NICOTINE DEPENDENCE, UNSPECIFIED, UNCOMPLICATED SNOMED Code(s): 41517574 Comment: -Continue nicotine patch and gum. (5) Chronic pain Current Visit: Yes Status: Acute Code(s): G89.29 - OTHER CHRONIC PAIN SNOMED Code(s): 06034820 Comment: -Pain to right hip, ongoing since previous surgery. Awaiting future surgery to fix the problem. Continue tylenol, gabapentin, cyclobenzaprine and oxycodone. (6) Anxiety Current Visit: Yes Status: Acute Code(s): F41.9 - ANXIETY DISORDER, UNSPECIFIED SNOMED Code(s): 44370857 Comment: -Currently anxious due to foreign environment. Continue alprazolam and burproprion. (7) DVT prophylaxis Current Visit: Yes Status: Acute Code(s): Z29.9 - ENCOUNTER FOR PROPHYLACTIC MEASURES, UNSPECIFIED SNOMED Code(s): 035049663 Comment: -Continue heparin and SCDs. (8) Full code status Current Visit: Yes Status: Acute Code(s): Z78.9 - OTHER SPECIFIED HEALTH STATUS SNOMED Code(s): 307758838 Status and Disposition: Condition: Fair Disposition: Admit inpatient. Attending: Valery Mayfield
[2019-10-09] MEDS: ALPRAZolam TAB* 0.5 MG PO PRN ×2 (11:49→20:45)
[2019-10-09] MEDS: Mometasone/Formoter 200/5 MDI INH SCH (11:49)
[2019-10-09] MEDS: amLODIPine TAB* 5 MG PO SCH (11:49)
[2019-10-09] MEDS ORDERED: Ezetimibe TAB* 10 MG PO SCH (17:00)
[2019-10-09] MEDS ORDERED: Melatonin 3 MG TAB PO PRN (17:18)
[2019-10-09] MEDS ORDERED: Nicotine Patch Removal NOTE PATCH OFF SCH (21:00)
[2019-10-10] MEDS: Heparin VIAL(*) 5000 UNITS/ML VIAL (FIVE THOUSAND) SUBCUT SCH ×2 (05:50→13:22)
[2019-10-10] MEDS: Mometasone/Formoter 200/5 MDI INH SCH ×2 (07:11→07:18)
[2019-10-10] MEDS ORDERED: Perflutren Lipid Microsphere* 3 ML VIAL ONE (08:13)
[2019-10-10] MEDS: oxyCODONE/Acetamin 5/325 MG* TAB PO SCH ×2 (09:06→13:20)
[2019-10-10] MEDS: Atorvastatin* 80 MG TAB PO SCH (09:07)
[2019-10-10] MEDS: BuPROPion XL* 150 MG TAB.XL PO SCH (09:07)
[2019-10-10] MEDS: amLODIPine TAB* 5 MG PO SCH (09:08)
[2019-10-10] MEDS: Aspirin TAB* 325 MG PO SCH (09:10)
[2019-10-10] MEDS: Nicotine PATCH 21 MG/24 HR* PATCH TRANSDERM SCH (09:10)
[2019-10-10] MEDS: Gabapentin CAP(*) 400 MG PO SCH ×2 (09:10→13:20)
--- NOTE | 2019-10-10 10:03 | ECHO ---
*[facility]* [place] [address] Fax #: [phone] Transthoracic Echocardiogram Patient: Faheem Anderson : 1965 Study Date: 10/10/2019 Age: 54 Gender: M HR: 79 bpm Height: 69 in /175.3 cm BSA: 2.11 m^2 Weight: 209.6 lb /95.3 kg BMI: 31 kg/m^2 *Baseball Scout: * Meeta Rodriguez RDCS RN *Referring Physician: * Rosa Maria Coello *Reading Physician: * David Dickson MD Indications: TIA. History: Cerebrovascular accident. Former ETOH use. Risk factors: Current tobacco use. Dyslipidemia. Conclusions Summary: - Left ventricle: Systolic function is normal. The estimated ejection fraction is 55-60%. Wall motion is normal; there are no regional wall motion abnormalities. - Right ventricle: Systolic function is normal. - Atrial septum: No defect or patent foramen ovale is identified. Bubble study was negative on Images 115-117. - Mitral valve: There is trace regurgitation. - Aortic valve: There is no evidence of stenosis. - Tricuspid valve: There is trace regurgitation. - Pulmonary arteries: Systolic pressure can not be accurately estimated. Study data: Transthoracic echocardiogram. Procedure: Transthoracic echocardiography was performed. Image quality was fair. The study was technically limited due to smoking history. Intravenous Definity 3 ml was administered to enhance imaging. A bubble study was performed using agitated normal saline IV. Complete 2D, spectral Doppler, and color flow Doppler. Location: Bedside. Patient status: Observation. Patient room number: 434. Rhythm: Normal sinus rhythm. Findings Left ventricle: The cavity size is normal. Septal wall thickness is mildly to moderately increased. Systolic function is normal. The estimated ejection fraction is 55-60%. Wall motion is normal; there are no regional wall motion abnormalities. There is no consistent Doppler evidence of clinically significant diastolic dysfunction. Right ventricle: The cavity size is normal. Wall thickness is mildly increased. Systolic function is normal. Left atrium: The atrium is normal in size. Right atrium: The atrium is normal in size. Atrial septum: No defect or patent foramen ovale is identified. Bubble study was negative on Images 115-117. Mitral valve: The leaflets are mildly thickened. There is no evidence of stenosis. There is trace regurgitation. Aortic valve: The valve is trileaflet. The leaflets are mildly thickened. There is no evidence of stenosis. There is no significant regurgitation. Tricuspid valve: The valve is structurally normal. There is no evidence of stenosis. There is trace regurgitation. Pulmonic valve: The valve is structurally normal. There is no evidence of stenosis. There is trace regurgitation. Aorta: Aortic root: The aortic root is not dilated. Ascending aorta: The ascending aorta is not dilated. Aortic arch: The aortic arch is not visualized. Pericardium: There is no pericardial effusion. Pulmonary arteries: The main pulmonary artery is normal-sized. Systolic pressure can not be accurately estimated. Systemic veins: Inferior vena cava: The vessel is normal in size. There is (>= 50%) respiratory change in the IVC dimension. Measurements Left ventricle Value Ref Right atrium Value Ref NANCY, LAX 4.3 cm 4.2 - 5.8 ML dim, ES, A4C 3.2 cm 2.6 - 4.4 ESD, LAX 2.9 cm 2.5 - 4.0 SI dim, ES, A4C 4.5 cm 3.4 - 5.3 FS, LAX 34 % 25 - 43 Estimated RAP 3 mm Hg --------- PW, ED 0.8 cm 0.6 - 1.0 IVS/PW, ED 1.6 Aortic valve Value Ref E', lat tonie, TDI (L) 8.6 cm/sec >=10.0 Tonie diam, ED 2.0 cm -- ------- E/e', lat tonie, 6 Peak v, S 1.22 m/sec ----- ---- TDI VTI, S 19.1 cm --------- E', med tonie, TDI 7.8 cm/sec >=7.0 Mean grad, S 4.0 mm Hg -- ------- E/e', med tonie, 7 Peak grad, S 6.0 mm Hg ----- ---- TDI LVOT/AV, VTI ratio 0.96 --------- E', avg, TDI 8.2 cm/sec E/e', avg, TDI 6 <=14 Mitral valve Value Re f Peak E 0.51 m/sec --------- LVOT Value Ref Peak A 0.65 m/sec --------- Peak chris, S 1.03 m/sec Decel time 264 ms --------- VTI, S 18.3 cm Peak E/A ratio 0.8 --------- Mean grad, S 2 mm Hg Pulmonic valve Value Ref Ventricular septum Value Ref Peak v, S 1.03 m/sec --------- IVS, ED (H) 1.3 cm 0.6 - 1.0 Peak grad, S 4.0 mm Hg --------- Right ventricle Value Ref Aortic root Value Ref AW thickness, ED (H) 0.8 cm 0.1 - 0.5 Root diam 3.4 cm <4.2 NANCY, LAX 2.4 cm NANCY minor ax, 2.7 cm 1.9 - 3.5 Ascending aorta Value Ref A4C mid AAo AP diam, S 3.4 cm --------- AAo AP diam/bsa, S 1.6 cm/m^2 --------- Left atrium Value Ref AP dim, ES (L) 2.70 cm 3.00 - Inferior vena cava Value Ref 4.00 Diam 1.7 cm --------- ML dim, A4C 3.0 cm SI dim, A4C 4.3 cm Vol/bsa, ES, 1-p 15 ml/m^2 12 - 37 A4C Vol/bsa, ES, A/L 17 ml/m^2 16 - 34 Legend: (L) and (H) alyssa values outside specified reference range. Prepared and electronically signed by David Dickson MD 10/10/2019 10:02
[2019-10-10 11:04] VITALS: BP 145/88
[2019-10-10 11:21] LABS: TSH (Thyroid Stimulating Horm) 0.21 mcIU/mL (0.34-5.60)
[2019-10-10] MEDS ORDERED: NS 0.9% 1000 ML** 1,000 ML IV ONE (11:26)
--- NOTE | 2019-10-10 11:33 | CONSULT ---
Consult Consult: Neurology Inpatient Consult Note Date of service: 10/10/2019 Reason for consult: Neurology was consulted by Rosa Maria Wolfe to evaluate the patient for stroke. The history was obtained by the patient. Chief complaint: Frequent falls History of Present Illness: Mr. Faheem Anderson is a 54-year-old right-handed man who has frequent episodes of falls for the past five weeks. He stated that the falls occur sporadically, anytime during the day. He has had a total of eight falls. He does not hit his head. He does not experience loss of consciousness. He did have one episode where he fell between his bed and nightstand and does not recall falling. His partner had once asked him why his head was between the nightstand and the bed and he did not know why. The falls usually occur after he stands from a seated position. The last fall occurred after micturition. He fell outside the bathroom door. He denied any prodromal symptoms. He denied any visual hallucinations, Sharon vu, or epigastric rising. He denied any lightheadedness or chest pain. He denied any palpitations. He has never experienced similar symptoms before. He denied any headache, focal weakness or paresthesias. The patient has history of a head injury with subsequent left vertebral artery dissection causing a left cerebellar stroke. He is not on any anti-platelet therapy. He takes statins regularly. He has not had any adjustments of his medications at home. The patient denied any history of seizures. He has no history of meningitis or encephalitis. He has no family history of epilepsy. Labs, Imaging and Other Diagnostics: TSH: 0.21 B12: 355 LDL: 165 IMAGING: CT head without contrast completed on 10/08: no acute intracranial abnormality. Remonstrated left cerebellar hemisphere encephalomalacia. CTA head without contrast 10/08/2019: No acute large vessel occlusion. 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 He has no residual deficits. Hypertension, chronic pain syndrome, right hip pain, anxiety, depression, borderline personality disorder, tobacco use. Family History: Sister had a stroke. Father of cancer. Social History: He smokes two packs per day for 30 years. He denied alcohol use. He lives with his partner. 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 Medications: Acetaminophen (Tylenol Tab*) 650 mg PO Q4H PRN PRN Reason: MILD PAIN or TEMP > 100.4 Last Admin: 10/09/19 03:57 Dose: 650 mg Albuterol (Ventolin Hfa Inhaler*) 1 puff INH Q4H PRN PRN Reason: SOB/WHEEZING Alprazolam (Xanax Tab*) 0.5 mg PO BID PRN PRN Reason: ANXIETY Last Admin: 10/10/19 11:34 Dose: 0.5 mg Amlodipine Besylate (Norvasc Tab*) 10 mg PO DAILY [facility] Last Admin: 10/10/19 09:08 Dose: 10 mg Aspirin (Aspirin Tab*) 325 mg PO DAILY [facility] Last Admin: 10/10/19 09:10 Dose: 325 mg Atorvastatin Calcium (Lipitor*) 80 mg PO DAILY [facility] Last Admin: 10/10/19 09:07 Dose: 80 mg Bupropion HCl (Wellbutrin Xl *) 450 mg PO DAILY [facility] Last Admin: 10/10/19 09:07 Dose: 450 mg Cyclobenzaprine HCl (Flexeril Tab*) 10 mg PO TID PRN PRN Reason: spasm Last Admin: 10/09/19 03:53 Dose: 10 mg Ezetimibe (Zetia Tab*) 10 mg PO 1700 [facility] Last Admin: 10/09/19 17:11 Dose: 10 mg Gabapentin (Neurontin Cap(*)) 800 mg PO TID [facility] Last Admin: 10/10/19 09:10 Dose: 800 mg Heparin Sodium (Porcine) (Heparin Vial(*)) 5,000 units SUBCUT Q8HR [facility] Last Admin: 10/10/19 05:50 Dose: 5,000 units Hydralazine HCl (Apresoline Iv*) 5 mg IV SLOW PU Q6H PRN PRN Reason: BLOOD PRESSURE Sodium Chloride (Ns 0.9% 1000 Ml) 1,000 mls @ 1,000 mls/hr IV ONCE ONE Stop: 10/10/19 12:25 Last Admin: 10/10/19 11:31 Dose: 1,000 mls/hr Melatonin (Melatonin) 3 mg PO BEDTIME PRN PRN Reason: SLEEP Last Admin: 10/09/19 20:46 Dose: 3 mg Mometasone Furoate/Formoterol Fumar (Dulera 200/5 Mdi*) 2 puff INH BID [place]; Protocol Last Admin: 12/09/19 07:18 Dose: Not Given Nicotine (Nicotine Patch 21 Mg/24 Hr*) 1 patch TRANSDERM DAILY@0800 [facility] Last Admin: 10/10/19 09:10 Dose: 1 patch Nicotine Polacrilex (Nicotine Gum*) 2 mg PO Q2H PRN PRN Reason: nicotine craving Last Admin: 10/09/19 08:26 Dose: 2 mg Ondansetron HCl (Zofran Inj*) 4 mg IV Q6H PRN PRN Reason: NAUSEA/VOMITING Oxycodone/Acetaminophen (Percocet 5/325 Tab*) 1 tab PO TID [facility] Last Admin: 10/10/19 09:06 Dose: 1 tab Pharmacy Profile Note (Nicotine Patch Removal Note*) 1 note PATCH OFF 2100 [facility] Last Admin: 10/09/19 20:30 Dose: 1 note Allergies buspirone [From BuSpar] Allergy (Verified 10/08/19 14:54) Tinnitus hydrocodone Allergy (Verified 10/08/19 14:54) Itching Review of Systems: A 14-point ROS was obtained and otherwise negative except for what was mentioned in the HPI. Physical Exam: Vitals: Vital Signs - 12 hr Temp Pulse Resp BP Pulse Ox 10/10/19 11:34 16 10/10/19 11:04 16 10/10/19 11:03 109 86/61 10/10/19 11:00 97.3 F 88 20 151/82 97 10/10/19 09:10 17 10/10/19 09:06 17 10/10/19 07:00 97.6 F 84 17 152/98 97 10/10/19 03:00 97.5 F 81 16 131/93 93 ORTHOSTATIC VITALS: Supine: 10:59 a.m.- pulse 87 and BP 145/88 Standin:02 - pulse 109 and BP 86/61. General: well nourished, well developed. Alert, cooperative, no apparent distress, appears stated age. Head: normocephalic, without obvious abnormality Eyes: conjunctivae/corneas clear Neck: supple, symmetrical. No carotid bruit. No lymphadenopathy. Lungs: clear to auscultation bilaterally, non-labored CV: regular rhythm, S1, S2 normal, radial pulses palpable Extremities: normal range of motion with no cyanosis. Skin: no skin lesions or lacerations Psych: affect-broad and normal mood. Easy to establish rapport. Neurological examination: Mental status: awake; alert and oriented to person, place, time, & general circumstances; speech & language including expression, naming, repetition, & comprehension was assessed and found to be normal. Cranial nerves: I: not tested II, III, IV, : normal confrontation B/L, Pupils midrange and reactive to light , normal consensual response; extraocular muscles are intact; no ptosis; no conjugate or asymmetrical nystagmus V /2/3: sensation is intact on forehead, cheeks, and jaw region VII: no facial droop; facial symmetry while smiling & wrinkling of forehead; tight lid closure VIII: able to hear throughout the history process IX & X: symmetric palatal elevation XI: normal strength against resistance XII: tongue is symmetrical & midline with no atrophy or fasciculations Motor (R/L): no abnormal movements, no pronator drift. Normal bulk and tone throughout. No fasciculations. Neck extension 5. Shoulder ROM is full. Shoulder abduction 5/5. Elbow flexion 5/5, extension 5/5. Wrist flexion 5/5, extension 5/5. Finger flexion 5/5, extension 5/5, abduction 5/5. Hip flexion 5/5, abduction 5/5. Knee flexion 5/5, extension 5/5. Ankle dorsiflexion 5/5, plantarflexion 5/5. Reflexes R L Brachioradialis 1 1 Biceps 1 1 Triceps 1 1 Patella 1 1 Ankle trace trace Plantar flexor flexor Sensation is intact to light touch throughout. Normal vibration and proprioception at the great toes. Coordination: normal finger to nose and rapid alternating movements. Gait & Station: narrow based; normal stance and gait. No ataxia. Assessment: 1. Orthostatic hypotension attributable to medication effect. The most likely medication to be causing orthostasis is cyclobenzaprine. Other factors such as autonomic neuropathy cannot be entirely excluded. This is the most likely etiology of the patient's nonspecific symptoms of "frequent falls" for the past five weeks. The patient's examination is notable for severe drop in his systolic BP from supine to standing (about 60 mmHg) and increase in HR by more than 20. He had no symptoms. He has no lateralizing neurological deficits to suspect stroke. The reported associated symptom of dysarthria is mostly related to polypharmacy , hypotension, or recrudescence of previous neurological symptoms in the setting of orthostasis. He has no history of seizures. The old left cerebellar stroke would not be a typical seizure focus. The current clinical history and examination findings are not consistent with stroke or TIA. 2. Remote history of traumatic vertebral artery dissection and subsequent left cerebellar stroke. 3. Low TSH. Pending Free T4. Defer further work-up to the primary team. 4. Dyslipidemia Recommendations: - Minimize the use cyclobenzaprine - Bolus 1L of NS IV - Compression stockings - Lifestyle modifications. Discussed foot exercises and to slowly get out of the chair or bed - If he continues to have the symptoms after medication adjustment, an EEG and an MRI brain without contrast should be done to evaluate for possible complex partial seizures, especially since he is on higher dose of Wellbutrin therapy. - Discussed fall precautions - He should be on aspirin 81 mg daily - Continue statin and Zetia therapies. Follow-up as an outpatient in 6-8 weeks. We will arrange a follow-up. Discussed the above recommendations with the patient. He is requesting to be discharged today. He Rogers Tavera MD Date: 10/10/2019 Time: 11:53
[2019-10-10] MEDS: ALPRAZolam TAB* 0.5 MG PO PRN (11:34)
[2019-10-10 12:44] LABS: Free T4 0.81 ng/dL (0.61-1.12)
--- NOTE | 2019-10-10 20:40 | DS ---
CC: Fernando Jane NP * DISCHARGE SUMMARY: DATE OF ADMISSION: 10/08/19 DATE OF DISCHARGE: 10/10/19 PROVIDER: Nyla Wu NP ATTENDING PHYSICIAN: Dr. Sharma * (DICTATED BY NYLA WU NP) PRIMARY CARE PROVIDER: Fernando Jane NP CONSULTING PHYSICIAN: Dr. Tavera. PRIMARY DIAGNOSES: 1. Orthostatic hypotension. 2. Hyperlipidemia. SECONDARY DIAGNOSES: 1. Anxiety. 2. Hypertension. 3. Nicotine dependence. PROCEDURES: Transthoracic echocardiogram showed ejection fraction of 55% to 60 % with normal wall motion, trace mitral valve regurgitation, trace tricuspid valve regurgitation. DIAGNOSTIC STUDIES/LAB DATA: CT of the brain showed no acute intracranial abnormalities and re-demonstrated left cerebral hemisphere encephalomalacia. Head and neck CTA showed no significant stenosis of the right internal carotid or vertebral artery, approximately 50% stenosis of the proximal left internal carotid artery. The left vertebral artery is small in caliber with moderate-to- severe stenosis, unchanged from prior study. EKG showed sinus rhythm. Pertinent lab data: Triglycerides 441, cholesterol 245, LDL cholesterol direct 165, HDL cholesterol 40. TSH 0.21. Hemoglobin A1c 6.3. HISTORY OF PRESENT ILLNESS/HOSPITAL COURSE: This is a 54-year-old male with a past medical history significant for CVA, hyperlipidemia and chronic pain, who was admitted on 10/08/19 for neurological deficit. The patient initially presented to the emergency room with garbled speech and possible altered mental status. He had fallen 8 times this past month and unclear as to why. Initially , he was treated as a rule out TIA versus CVA with head CTA and brain CT scan, which was negative for any acute changes. A transthoracic echocardiogram was performed which showed an ejection fraction of 55% to 60% and otherwise unremarkable. During his stay, the patient did not show any neurological deficits. No slurred or garbled speech and no unilateral weakness. He was seen by Dr. Tavera today with concerns to the transient neurological deficits as well as his recent falls, who determined that these could be attributed to orthostatic hypotension as his blood pressure dropped to the 80s systolically upon standing, though he was asymptomatic. The patient is on a number of different medications at home for pain and sleep that when combined could explain the garbled speech and the orthostatic hypotension. The patient was given a liter of IV fluids. MYLA stockings applied. The patient taught to change positions slowly. I spoke with the patient about his use of each of the medications and how important they were to his functioning and determined between a mutual agreement that Ambien was able to be discontinued. The patient had trialed melatonin the previous night with good success, had been able to sleep well, though he agreed to stop taking that altogether at home. We would like to have the patient follow up with his primary care physician in order to reevaluate his other medication regimen in hopes to further decrease the risk of orthostatic hypotension. Today, the patient is in good spirits, good health, no acute complaints. Denies any chest pain, shortness of breath, abdominal pain, nausea, vomiting, lightheadedness, dizziness, fevers, chills, or issues moving his bowel or bladder. REVIEW OF SYSTEMS: An 11-point system review was performed. Please see HPI for pertinent negatives. PHYSICAL EXAMINATION: Vital Signs: 97.3 Fahrenheit, 88 pulse, 20 resps, 97% oxygen on room air, and 151/82 blood pressure. General: This is a well- developed gentleman seen resting in bed, in no acute distress. Eyes: Conjunctivae pink and moist. PERRLA. EOMs intact. ENT: Mucous membranes moist. Oropharynx clear. Neck is supple. Cardiac: S1, S2 present. Heart rate regular. No murmurs, rubs, or gallops appreciated. Respiratory: Lung sounds clear throughout bilaterally on room air with no accessory muscle use noted. Abdomen is softly distended. No tenderness. Positive bowel sounds x4. Musculoskeletal: Strength 5/5 to bilateral upper and lower extremities. No clubbing or cyanosis of the digits. Skin: No open areas or rashes appreciated. Neuro: Moves all extremities. Sensation intact to light touch. Smile symmetrical. Tongue midline. No focal deficits appreciated. Psych: Alert and oriented x3. No anxiety or depression noted. DISCHARGE PLAN: Diet is a low-fat diet. I spoke with the patient at great length about cutting back on his butter intake as he has almost 1 stick per day , which is contributing to his hyperlipidemia. Activity is as tolerated. The patient is to return to the hospital if he experiences any sudden chest pain, shortness of breath, slurred speech, unilateral extremity weakness, or facial asymmetry. PLAN: 1. For orthostatic hypotension, the patient is to discontinue zolpidem and to follow up with primary care physician to evaluate for further dose reduction of his other medications and to stay hydrated and to wear MYLA stockings during the day. 2. Hypertension. At rest, blood pressures have been stable. Continue amlodipine. 3. Hyperlipidemia. Atorvastatin dosage already maximized at 80 mg a day. The patient to continue this. The patient to start on Zetia daily due to triglycerides over 400 and to follow up with primary care physician. I educated the patient about lifestyle changes and recommended low-fat diet. 4. Chronic pain in the right hip. The patient is awaiting future surgery to fix the pain in his right hip. Otherwise, he can continue his Tylenol, gabapentin, cyclobenzaprine, and oxycodone, though I spoke with the patient about taking the cyclobenzaprine sparingly. The patient was unwilling to go down on the oxycodone and gabapentin at this time. 5. Anxiety. Anxiety was exacerbated due to a foreign environment. Was taking alprazolam twice a day. May also continue his bupropion. 6. Nicotine dependence. Encouraged the patient to quit smoking. Declined any smoking aids at this time. DISCHARGE MEDICATIONS: 1. Zetia 10 mg p.o. daily. 2. Melatonin 3 mg p.o. at bedtime p.r.n. 3. Aspirin 81 mg p.o. daily. 4. Cyclobenzaprine 10 mg p.o. t.i.d. p.r.n. 5. Gabapentin 800 mg p.o. t.i.d. 6. Percocet 5/325 three times a day. 7. Alprazolam 0.5 mg p.o. daily p.r.n. 8. Nicotine gum 2 mg p.o. q.2 hours p.r.n. 9. Bupropion SR 450 mg p.o. daily. 10. Atorvastatin 80 mg p.o. daily. 11. Amlodipine 10 mg p.o. daily. 12. Budesonide/formoterol 2 puffs inhalation twice daily. 13. Albuterol inhaler 1 to 2 puffs q.4 hours p.r.n. CONDITION UPON DISCHARGE: Stable. DISPOSITION: To home. TIME SPENT: Time spent on the patient was greater than 30 minutes. NYLA WU, SHOE FOLDER [id number]/[facility] #: [id number] MONIKA
== END 2019-10-10 15:00 | disposition home or self-care (01) ==
LOC: ED 14:46 → MEDTELE 21:14
PROVIDERS: ADMIT Student in an Organized Health Care Education/Training Program; ATTEND Internal Medicine
DX: I95.1 Orthostatic hypotension (principal); I10 Essential (primary) hypertension; E78.5 Hyperlipidemia, unspecified; M25.551 Pain in right hip; F41.9 Anxiety disorder, unspecified; R41.82 Altered mental status, unspecified; Z86.73 Personal history of transient ischemic attack (TIA), and cerebral infarction without residual deficits; F17.210 Nicotine dependence, cigarettes, uncomplicated; R26.81 Unsteadiness on feet; Z79.82 Long term (current) use of aspirin; Z79.899 Other long term (current) drug therapy; R29.818 Other symptoms and signs involving the nervous system; Z91.81 History of falling
CPT/HCPCS: 36415; 70450; 70496; 70498; 80048; 80053; 80061; 81003; 82607; 83036; 83721; 83921; 84439; 84443; 85025; 93005; 93306; 99284; A9270-GY; C8929; G0378; J1644; Q9967

== ENCOUNTER 2019-10-26 12:40 | Emergency (ER) | payer OTHER ==
[2019-10-26] MEDS ORDERED: NS 0.9% 1000 ML** 1,000 ML IV ONE (12:47)
--- NOTE | 2019-10-26 12:59 | ED ---
Neurological HPI - HPI Summary HPI Summary: Time of arrival: 1241. Time seen by provider (in triage): 1243. The patient is a 54 y/o M [facility] accompanied by friend with a chief complaint of waking up with neurological deficits this morning after feeling alright when going to sleep around 2300 last night. He has been noted to have slurred speech, unsteady gait, syncopal events (witnessed by friend) as well as difficulty driving straight. The patient reports a headache now but has no other complaints. No recent falls. Currently takes ASA but no other anticoagulants. He takes Xanax, pain medicine, Wellbutrin, and Ambien. Previous similar symptoms in stroke 12 years ago. PMHx: CVA, HLD, HTN, anxiety. FHx: stroke in sister age 42. Current every day smoker, rare EtOH, no substance use. Medications reviewed. Allergies noted. Patient sent to CT emergently. TPA/Code Gutiérrez not considered as symptoms onset at unknown time. - History of Current Complaint Stated Complaint: AMS,SYCNOPE, Hx Obtained From: Patient, Other: - friend Onset/Duration: Started hours ago - woke up with symptoms, Still Present Onset Severity: Moderate Current Severity: Moderate Headache Location: Diffuse (Right), Diffuse (Left) Pain Intensity: 0 Pain Scale Used: 0-10 Numeric Character: Impaired Speech, Other: - unsteady gait Syncope Context: Witnessed Aggravating: Nothing Alleviating: Nothing Associated Signs and Symptoms: Positive: Unsteady Gait, Headache, Impaired Speech TPA Considered: No - symptoms out of time frame - Additional Pertinent History Primary Care Physician: MAYLIN - Allergy/Home Medications Allergies/Adverse Reactions: Allergies Allergy/AdvReac Type Severity Reaction Status Date / Time buspirone [From BuSpar] Allergy Tinnitus Verified 10/08/19 14:54 hydrocodone Allergy Itching Verified 10/08/19 14:54 Home Medications: Home Medications Zolpidem TAB* [Ambien TAB*] 10 mg PO BEDTIME PRN 10/26/19 [History Confirmed ] PMH/Surg Hx/FS Hx/Imm Hx Endocrine/Hematology History: Denies: Hx Anticoagulant Therapy, Hx Diabetes, Hx Thyroid Disease Cardiovascular History: Reports: Hx Hypercholesterolemia, Hx Hypertension - seeing PCP this week- BP elevated here today Denies: Hx Pacemaker/ICD Respiratory History: Reports: Other Respiratory Problems/Disorders - chronic cough, SOB with activity Denies: Hx Asthma, Hx Chronic Obstructive Pulmonary Disease (COPD) History: Denies: Hx Renal Disease Musculoskeletal History: Reports: Other Musculoskeletal History - had left foot surgery two years ago- states now has titanium screws Sensory History: Reports: Hx Contacts or Glasses Denies: Hx Hearing Aid Opthamlomology History: Reports: Hx Contacts or Glasses Neurological History: Reports: Hx CVA Denies: Hx Dementia, Hx Seizures Psychiatric History: Reports: Hx Anxiety, Hx Inpatient Treatment - at [facility], Hx [facility] - states he met with Dr. 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 REMOVAL OF BONE SPURS FROM RIGHT HIP 07/22/[address] Cai at [facility] - Immunization History Date of Tetanus Vaccine: unknown Date of Influenza Vaccine: no Infectious Disease History: No Infectious Disease History: Denies: Hx Hepatitis, Hx Human Immunodeficiency Virus (HIV), Traveled Outside the [place] in Last 30 Days - Family History Known Family History: Positive: Other - Stroke in sister at age 42 - Social History Alcohol Use: Rare Alcohol Amount: 1-2 times per year Hx Substance Use: Yes Substance Use Type: Reports: None Substance Use Comment - Amount & Last Used: xanax, vicodin Hx Tobacco Use: Yes Smoking Status (MU): Current Every Day Smoker Type: Cigarettes Amount Used/How Often: 5 cigs a day Length of Time of Smoking/Using Tobacco: age 10 Have You Smoked in the Last Year: Yes Review of Systems Negative: Fever Neurological: Other - unsteady gait Positive: Headache, Syncope, Slurred Speech All Other Systems Reviewed And Are Negative: Yes Physical Exam - Summary Physical Exam Summary: Constitutional: Well-developed, Well-nourished, Alert. (-) Distressed Skin: Warm, Dry HENT: Normocephalic; Atraumatic Eyes: Conjunctiva normal Neck: Musculoskeletal ROM normal neck. (-) JVD, (-) Stridor, (-) Tracheal deviation Cardio: Rhythm regular, rate normal, Heart sounds normal; Intact distal pulses. Radial pulses are 2+ and symmetric. (-) Murmur Pulmonary/Chest wall: Effort normal. (-) Respiratory distress, (-) Wheezes, (-) Rales Abd: Soft. (-) Tenderness, (-) Distension, (-) Guarding, (-) Rebound Musculoskeletal: (-) Edema Lymph: (-) Cervical adenopathy Neuro: Alert, Oriented x3, Strength normal, Cranial nerves II-XII are grossly intact. (-) Dysmetria, (-) Nystagmus, (-) Ataxia by finger to nose testing, (-) Sensory deficit. Psych: Mood and affect Normal NIH: 1 (see scale). GCS: 15. Triage Information Reviewed: Yes Vital Signs On Initial Exam: Initial Vitals Temp Pulse Resp BP Pulse Ox 97.3 F 79 19 156/103 96 10/26/19 12:41 10/26/19 12:41 10/26/19 12:41 10/26/19 12:41 10/26/19 12:41 Vital Signs Reviewed: Yes - Laurence Coma Scale Best Eye Response: 4 - Spontaneous Best Motor Response: 6 - Obeys Commands Best Verbal Response: 5 - Oriented Coma Scale Total: 15 Procedures - Sedation Patient Received Moderate/Deep Sedation with Procedure: No Diagnostics - Vital Signs Vital Signs Temp Pulse Resp BP Pulse Ox 10/26/19 12:41 97.3 F 79 19 156/103 96 - Laboratory Result Diagrams: 10/26/19 13:13 10/26/19 13:13 Lab Statement: Any lab studies that have been ordered have been reviewed, and results considered in the medical decision making process. - Radiology CXR Radiology Interpretation Completed By: Radiologist Summary of Radiographic Findings: Impression: No radiographic evidence for acute cardiopulmonary abnormality on this portable chest x-ray. ED physician has reviewed this report. - CT Brain CT CT Interpretation Completed By: Radiologist Summary of CT Findings: Impression: 1. No CT evidence of acute intracranial pathology. If the patient is experiencing acute onset focal neurologic deficit, superior characterization can be made with MRI of the brain. 2. 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 ED physician has reviewed this report. Head/Neck CTA CT Interpretation Completed By: Radiologist Summary of CT Findings: Impression: There is no acute, focal obstruction or other acute arterial abnormality. 2. According to nascet criteria, Mixed attenuation atherosclerosis of the bilateral carotid bulbs yielding 29% degree stenosis on the right and 66% degree stenosis on the left. 3. The atherosclerosis of the left carotid bulb is mostly noncalcified presenting increased risk for distal intracranial emboli. ED physician has reviewed this report. - EKG 1312 Cardiac Rate: NL - 75 bpm EKG Rhythm: Sinus Rhythm Summary of EKG Findings: EKG at 1312 reveals normal sinus rhythm at 75 bpm. No STEMI. ED physician has reviewed and interpreted this EKG. NIH Scale - NIH Scale Level of Consciousness: Alert/Keenly Responsive Ask Patient the Month and His/Her Age: Both Correct Ask Pt to Open/Close Eyes and Stemmer Machine/Release Non-Paretic Hand: Both Correctly Best Gaze (Only Horizontal Eye Movement): Normal Visual Field Testing: No Visual Loss Facial Paresis-Pt to Smile & Close Eyes or Grimace Symmetry: Normal/Symmetrical Motor Function - Right Arm: No Drift-Holds 10 Seconds Motor Function - Left Arm: No Drift-Holds 10 Seconds Motor Function - Right Leg: No Drift-Holds 10 Seconds Motor Function - Left Leg: No Drift-Holds 10 Seconds Limb Ataxia-Must be out of Proportion to Weakness Present: Absent Sensory (Use Pinprick to Test Arms/Legs/Trunk/Face): Normal Best Language (Describe Picture, Name Items): No Aphasia Dysarthria (Read Several Words): Slurs Some Words Extinction and Inattention: No Abnormality Total Score: 1 Re-Evaluation - Re-Evaluation First Eval Re-Evaluation Time: 12:55 Comment: Per chart review, the patient was seen for similar symptoms about a month ago, and symptoms were attributed likely to polypharmacy so he was advised to halt Ambien use. Patient placed back on Ambien a week ago b PCP. Second Eval Re-Evaluation Time: 15:10 Comment: We discussed results and plan for discharge home. Course/Dx - Course Course Of Treatment: Patient is here with slurred speech and changes in his gait. Patient also has orthostatic near syncope. Patient had similar presentation roughly 3 weeks ago and was admitted here for workup. Patient was found to be symptomatic from polypharmacy. Patient was told to stop his Ambien which she did do until one week ago when he was restarted on that by his primary care doctor. Patient was not in any tPA window so a code Gutiérrez was not called. Patient did have an emergent CT brain and CTA head/neck which was negative for any acute abnormality. Patient go to performed which was grossly unremarkable. Patient did have an NIHSS of 1 just due to his slightly slurred speech. Neurology was called and they think this is related to polypharmacy and were comfortable with discharge. Patient was told to stop taking Ambien. - Diagnoses Provider Diagnoses: Slurred speech, Polypharmacy - Physician Notifications Discussed Care Of Patient With: Rogers Tavera - neurology Time Discussed With Above Provider: 12:49 Instructed by Provider To: Other - I discussed the patient's case with Dr. Tavera , who recommends admission for the patient if the CT does not show LVO, and he will see the patient tomorrow. At 1500, Dr. Tavera feels comfortable discharging the patient with neuro follow up. Discharge ED - Sign-Out/Discharge Documenting (check all that apply): Patient Departure - Patient will be discharged home. - Discharge Plan Condition: Stable Disposition: HOME Patient Education Materials: Stroke (DC) Referrals: Fernando Jane NP [Primary Care Provider] - 3 Days Cedric Aragon MD [Medical Doctor] - 3 Days Additional Instructions: Stop taking your Ambien. Do not drive until cleared by your primary care provider. Follow up with Dr. Aragon from neurology in 1-3 days. Return to the emergency department for slurred speech, trouble breathing, difficulty walking, weakness on one side of the body, or any other concerning symptoms. - Billing Disposition and Condition Condition: STABLE Disposition: Home - Attestation Statements Document Initiated by Kourtney: Yes Documenting Scribe: Saray Silveira Provider For Whom Kourtney is Documenting (Include Credential): Dr. Zhen Ly MD Scribe Attestation: Saray Hairston, scribed for Dr. Zhen Ly MD on 10/26/19 at 1532. Scribe Documentation Reviewed: Yes Provider Attestation: The documentation as recorded by the Saray callahan accurately reflects the service I personally performed and the decisions made by me, Dr. Zhen Ly MD Status of Scribe Document: Viewed
[2019-10-26 13:33] LABS: ABS Eosinophils 0.2 10^3/ul (0-0.6); ABS Lymphocytes 2.7 10^3/ul (1.0-4.8); ABS Monocytes 0.9 10^3/ul (0-0.8); Eosinophil % 2.5 %; Hematocrit 41 % (42-52); Hemoglobin 13.9 g/dL (14.0-18.0); Lymphocyte % 39.9 %; Mean Corpuscular HGB Conc 34 g/dL (31-36); Mean Corpuscular Hemoglobin 30 pg (27-31); Mean Corpuscular Volume 89 fL (80-94); Mean Platelet Volume 6.8 fL (7.4-10.4); Nucleated Red Blood Cells % 0.1; Platelet Count 267 10^3/uL (150-450); Red Blood Count 4.58 10^6 /uL (4.18-5.48); Red Cell Distribution Width 15 % (10-15); White Blood Count 6.7 10^3/uL (3.5-10.8)
[2019-10-26 13:39] LABS: Activated Partial Thrombo Time 39.6 seconds (26.0-38.0); INR 0.86 (0.82-1.09)
[2019-10-26 13:41] LABS: Albumin 3.8 g/dL (3.2-5.2); Albumin/Globulin Ratio 1.6 (1-3); BUN/Creatinine Ratio 14.3 (8-20); Calcium 8.8 mg/dL (8.6-10.3); EGFR African American 116.1 (>60); Globulin 2.4 g/dL (2-4); HDL Cholesterol 32.3 mg/dL; Potassium 3.8 mmol/L (3.5-5.0); Total Bilirubin 0.2 mg/dL (0.2-1.0); Total Protein 6.2 g/dL (6.4-8.9)
[2019-10-26 13:45] LABS: Urine Appearance Clear; Urine Bilirubin Negative (Negative); Urine Blood Negative (Negative); Urine Color Straw; Urine Glucose Negative (Negative); Urine Ketones Negative (Negative); Urine Nitrite Negative (Negative); Urine Protein Negative (Negative); Urine Specific Gravity 1.019 (1.010-1.030); Urine Urobilinogen Negative (Negative)
[2019-10-26 15:34] VITALS: BP 138/75
== END 2019-10-26 15:33 | disposition home or self-care (01) ==
LOC: ED 12:40
DX: R47.81 Slurred speech (principal); E78.5 Hyperlipidemia, unspecified; I10 Essential (primary) hypertension; E78.00 Pure hypercholesterolemia, unspecified; F41.9 Anxiety disorder, unspecified; F17.210 Nicotine dependence, cigarettes, uncomplicated; Z86.73 Personal history of transient ischemic attack (TIA), and cerebral infarction without residual deficits; Z79.82 Long term (current) use of aspirin; Z79.899 Other long term (current) drug therapy; Z88.5 Allergy status to narcotic agent; Z88.8 Allergy status to other drugs, medicaments and biological substances
CPT/HCPCS: 36415; 70450; 70496; 70498; 71045; 80053; 80061; 81003; 83605; 84484; 85025; 85610; 85730; 93005; 96360; 99283

== ENCOUNTER 2020-01-09 15:07 | Emergency (ER) | payer OTHER ==
[2020-01-09 15:13] VITALS: BP 123/82
--- OUTSIDE RECORDS SUMMARY | 2020-01-09 15:37 | XMS REPORT | Continuity of Care Document ---
:1965 External Reference #:[id number] Author Name Fernando Jane NP (transmitted by agent of provider Steph Fisher) Address [address] [facility], [place] [address] Care Team Providers Name Role Phone Fidelia Richter MD - Internal Medicine Care Team Information Utility Technician Bandar Shaw MD - Orthopaedic Care Team Information Utility Technician Surgery Problems Active Problems Provider Date Localized, [...] fewer 42 years cigarettes/day) Smoking Status Reviewed: 11/16/19 Light tobacco smoker pt has smoked for (10 or fewer 42 years cigarettes/day) Exercise Type/Frequency Does not exercise Allergies, Adverse Reactions, Alerts Active Allergies Reaction Severity Comments Date Buspar ear ringing, fullness of ear and mufled 11/25/2018 sound. Inactive Allergies NKDA 10/19/2017 Medications Active Medications SIG Qnty Indications Ordering Date Provider [facility] Nicotine one patch once 28units Fernando Jane NP 10/31/2019 Transdermal System daily for 6 Step 2 weeks. 14mg/24HR Patches 24HR Amlodipine Besylate 1 1/2 tabs by 45tabs I10 Fernando Jane NP 10/17/2019 5mg mouth every day Tablets Bupropion 3 by mouth every 90tabs F32.89 [...] Aerosol as needed for shortness of breath. Gabapentin take 1 tablet by 120tabs F41.9 Fernando Jane NP 12/31/2017 800mg Tablets mouth four times a day if needed Cyclobenzaprine HCL take 1 tablet by 60tabs M25.551 Fernando Jane NP 2017 10mg mouth every 8 Tablets hours if needed for muscle spasm Oxycodone-Acetaminophe Errol, CONI Dickson 5-325mg Tablets Atorvastatin Calcium once a day 30tabs Fernando Jane NP 80mg Tablets History Medications Bupropion Hydrochloride 1 by mouth 30tabs F32.89 Fernando Jane NP 2018 - ER (XL) every day 08/19/2019 300mg Tablets ER 24HR Medications Administered in Office Medication SIG Qnty Indications Ordering Provider Date PPD Injection Fernando Jane NP 11/16/2019 PPD Injection Fernando Jane NP 10/15/2018 Immunizations CPT Code Status Date Vaccine Lot # [id number] Given 07/18/2019 Tdap - Tetanus/Diptheria/Acellular Pertussis [id number] Given 07/18/2019 Pneumococcal Conjugate Vaccine 13 Valent For [id number] Intramuscular Use 16438 Given 10/18/2018 Measles Mumps And Rubella MMR [id number] Given 09/02/2018 Influenza Virus Vaccine, Quadrivalent, Split, [id number] Preservative Free Vital Signs Date Vital Result Comment 11/16/2019 1:44pm Height 70.5 inches 5'10.50" Weight 197.38 lb Heart Rate 91 /min BP Systolic 128 mmHg BP Diastolic 95 mmHg BP Systolic Recheck 134 mmHg BP Diastolic Recheck 88 mmHg Body Temperature 97.0 F O2 % BldC Oximetry 94 % BMI (Body Mass Index) 27.9 kg/m2 10/31/2019 12:56pm Height 70.5 inches 5'10.50" Weight 211.00 lb Heart Rate 78 /min BP Systolic 116 mmHg BP Diastolic 80 mmHg Body Temperature 97.1 F O2 % BldC Oximetry 90 % BMI (Body Mass Index) 29.8 kg/m2 Results Test Acquired Date Facility Test Result H/L Range Note Laboratory test 11/15/2019 [facility] Mumps Igg <pending> finding [address] [place] [address] [phone] Rubeola Measles Igg AB <pending> Rubella Screen Immune Immune Urinalysis Profile 10/26/2019 [facility] Urine Color Straw [address] [place] [address] [phone] Urine Appearance Clear Urine Specific [place] 1.019 Normal 1.010-1.030 Urine pH 7.0 Normal 5-9 Urine Urobilinogen Negative Negative Urine Ketones Negative Negative Urine Protein Negative Negative Urine Leukocytes Negative Negative Urine Blood Negative Negative Urine Nitrite Negative Negative Urine Bilirubin Negative Negative Urine Glucose Negative Negative Inr/Protime 10/26/2019 [facility] Inr 0.86 Normal 0.82-1.09 1 [address] [place] [address] [phone] Laboratory test 10/26/2019 [facility] Partial 39.6 High 26.0- 38.[address] [address] Time PTT [phone] Lactic Acid 1.4 mmol/L Normal 0.5-2.0 2 CBC Auto 10/26/2019 [facility] White Blood 6.7 10^3/uL Normal 3.5-10.[address] [place] [address] [phone] Red Blood Count 4.58 10^6/uL Normal 4.18-5.48 Hemoglobin 13.9 g/dL Low 14.0-18.0 Hematocrit 41 % Low 42-52 Mean Corpuscular Volume 89 fL Normal 80-94 Mean Corpuscular Hemoglobin 30 pg Normal 27-31 Mean Corpuscular HGB Conc 34 g/dL Normal 31-36 Red Cell Distribution Width 15 % Normal 10-15 Platelet Count 267 10^3/uL Normal 150-450 Mean Platelet Volume 6.8 fL Low 7.4-10.4 Abs Neutrophils 3.0 10^3/uL Normal 1.5-7.7 Abs Lymphocytes 2.7 10^3/uL Normal 1.0-4.8 Abs Monocytes 0.9 10^3/uL High 0-0.8 Abs Eosinophils 0.2 10^3/uL Normal 0-0.6 Abs Basophils 0.0 10^3/uL Normal 0-0.2 Abs Nucleated RBC 0.0 10^3/uL Granulocyte % 44.0 % Lymphocyte % 39.9 % Monocyte % 13.2 % Eosinophil % 2.5 % Basophil % 0.4 % Nucleated Red Blood Cells % 0.1 Comp Metabolic 10/26/2019 [facility] Sodium 138 mmol/L Normal 135-[address] [place] [address] [phone] Potassium 3.8 mmol/L Normal 3.5-5.0 Chloride 102 mmol/L Normal 101-111 Co2 Carbon Dioxide 30 mmol/L Normal 22-32 Anion Gap 6 mmol/L Normal 2-11 Glucose 109 mg/dL High 70-100 Blood Urea Nitrogen 12 mg/dL Normal 6-24 Creatinine 0.84 mg/dL Normal 0.67-1.17 BUN/Creatinine Ratio 14.3 Normal 8-20 Calcium 8.8 mg/dL Normal 8.6-10.3 Total Protein 6.2 g/dL Low 6.4-8.9 Albumin 3.8 g/dL Normal 3.2-5.2 Globulin 2.4 g/dL Normal 2-4 Albumin/Globulin Ratio 1.6 Normal 1-3 Total Bilirubin 0.20 mg/dL Normal 0.2-1.0 Alkaline Phosphatase 117 U/L High 34-104 Alt 21 U/L Normal 7-52 Ast 13 U/L Normal 13-39 Egfr Non- 96.0 >60 Egfr 116.1 >60 3 Lipid Profile 10/26/2019 [facility] Triglycerides 271 mg/dL 4 (Trig/Chol/HDL) [address] [place] [address] [phone] Cholesterol 150 mg/dL 5 HDL Cholesterol 32.3 mg/dL 6 LDL Cholesterol 64 mg/dL 7 Laboratory test 10/26/2019 [facility] Troponin-I 0.00 <0.[address] (TnI) ng/[place] [address] [phone] Laboratory test 10/08/2019 [facility] Hemoglobin A1c 6.3 % High 4.0-5.6 [address] (Glyco HGB) [place] [address] [phone] Comp Metabolic 10/08/2019 [facility] Sodium 141 Normal 135- [address] mmol/[place] [address] [phone] Potassium 4.1 mmol/L Normal 3.5-5.0 Chloride 104 mmol/L Normal 101-111 Co2 Carbon Dioxide 28 mmol/L Normal 22-32 Anion Gap 9 mmol/L Normal 2-11 Glucose 95 mg/dL Normal 70-100 Blood Urea Nitrogen 13 mg/dL Normal 6-24 Creatinine 0.88 mg/dL Normal 0.67-1.17 BUN/Creatinine Ratio 14.8 Normal 8-20 Calcium 9.6 mg/dL Normal 8.6-10.3 Total Protein 7.1 g/dL Normal 6.4-8.9 Albumin 4.4 g/dL Normal 3.2-5.2 Globulin 2.7 g/dL Normal 2-4 Albumin/Globulin Ratio 1.6 Normal 1-3 Total Bilirubin 0.40 mg/dL Normal 0.2-1.0 Alkaline Phosphatase 144 U/L High 34-104 Alt 39 U/L Normal 7-52 Ast 24 U/L Normal 13-39 Egfr Non- 90.9 >60 Egfr 110.0 >60 10 CBC Auto 10/08/2019 [facility] White Blood 6.2 10^3/uL Normal 3.5-10.[address] [place] [address] [phone] Red Blood Count 5.13 10^6/uL Normal 4.18-5.48 Hemoglobin 15.5 g/dL Normal 14.0-18.0 Hematocrit 45 % Normal 42-52 Mean Corpuscular Volume 88 fL Normal 80-94 Mean Corpuscular Hemoglobin 30 pg Normal 27-31 Mean Corpuscular HGB Conc 34 g/dL Normal 31-36 Red Cell Distribution Width 16 % High 10-15 Platelet Count 296 10^3/uL Normal 150-450 Mean Platelet Volume 6.7 fL Low 7.4-10.4 Abs Neutrophils 3.4 10^3/uL Normal 1.5-7.7 Abs Lymphocytes 1.6 10^3/uL Normal 1.0-4.8 Abs Monocytes 1.0 10^3/uL High 0-0.8 Abs Eosinophils 0.1 10^3/uL Normal 0-0.6 Abs Basophils 0.1 10^3/uL Normal 0-0.2 Abs Nucleated RBC 0.0 10^3/uL Granulocyte % 54.2 % Lymphocyte % 25.7 % Monocyte % 17.0 % Eosinophil % 2.1 % Basophil % 1.0 % Nucleated Red Blood Cells % 0.1 Urinalysis Profile 10/08/2019 [facility] Urine Color Yellow [address] [place] [address] [phone] Urine Appearance Clear Urine Specific [place] 1.020 Normal 1.010-1.030 Urine pH 7.0 Normal 5-9 Urine Urobilinogen Negative Negative Urine Ketones Negative Negative Urine Protein Negative Negative Urine Leukocytes Negative Negative Urine Blood Negative Negative Urine Nitrite Negative Negative Urine Bilirubin Negative Negative Urine Glucose Negative Negative Laboratory test 07/26/2019 [facility] Alkaline 107 U/L High 34 -[address] [place] [address] [phone] GGTP 27 U/L Normal 9-64.0 Lipid Profile 07/19/2019 [facility] Triglycerides 658 mg/dL 11 (Trig/Chol/HDL) [address] [place] [address] [phone] Cholesterol 168 mg/dL 12 HDL Cholesterol 30.6 mg/dL 13 LDL Cholesterol (SEE NOTE) mg/dL 14 Comp Metabolic 07/19/2019 [facility] Sodium 138 mmol/L Normal 135-145 Panel [address] [place] [address] [phone] Potassium 3.5 mmol/L Normal 3.5-5.0 Chloride 100 [...] Egfr Non- 85.7 >60 Egfr 103.6 >60 15 Laboratory test 07/19/2019 [facility] Hemoglobin A1c 6.2 % High 4.0-5.6 16 finding [address] [facility] (Glyco HGB) [place] [address] [phone] Hepatitis B Ottoniel AB Titer Immune Immune Hepatitis B Surface Ag Negative Negative Hepatitis C Antibody 07/19/2019 [facility] HCV Index 0.01 s/c [address] [place] [address] [phone] Hepatitis C Antibody Negative Negative Laboratory 07/19/2019 [facility] LDL 86 mg/dL 17 test finding [address] [facility] [place] [place] [address] Direct [phone] HIV 1&2 p24 07/19/2019 [facility] HIV 4th Nonreactive Nonreactive Screen [address] [place] [address] [phone] 1 Standard intensity warfarin therapeutic range: 2.0-3.0 High intensity warfarin therapeutic range: 2.5-3.5 2 [place] Severe Sepsis and Septic Shock Management Bundle Measure requires all lactic acids initially measuring >2.0 mmol/L be repeated. 3 Because ethnic data is not always readily [...] 15-29 5 Kidney failure <15 (or dialysis) 4 Desirable: <150 Borderline High: 150-199 High: 200-499 Very High: >500 5 Desirable: <200 Borderline High: 200-239 High: >239 6 Low: <40 Desirable: 40-60 High: >60 7 Desirable: <100 Near Optimal: 100-129 Borderline High: 130-159 High: 160-189 Very High: >189 8 Troponin-I testing on Plasma Separator Tubes (PST) has a known false positive rate of 0.20-0.40%. All positive troponins reflex immediately to secondary confirmatory testing. Using the [employer] DxI 800 Access Immunoassay systems, the 99th percentile upper reference limit was demonstrated to be < 0.03 ng/mL. 9 Therapeutic target for the treatment of diabetes mellitus patients is <7% HBA1C, and in selective patients <6.0%. Please refer to [employer] diabetic care guidelines for further information. 10 Because ethnic data is not always readily [...] 15-29 5 Kidney failure <15 (or dialysis) 11 Desirable: <150 Borderline High: 150-199 High: 200-499 Very High: >500 12 Desirable: <200 Borderline High: 200-239 High: >239 13 Low: <40 Desirable: 40-60 High: >60 14 Unable to calculate LDL as triglyceride is > 400 15 Because ethnic data is not always readily [...] 15-29 5 Kidney failure <15 (or dialysis) 16 Therapeutic target for the treatment of diabetes mellitus patients is <7% HBA1C, and in selective patients <6.0%. Please refer to [employer] diabetic care guidelines for further information. 17 Desirable: <100 Near Optimal: 100-129 Borderline High: 130-159 High: 160-189 Very High: >189 Procedures Date Code Description Status 10/10/2019 35431 ECHO Transthorasic Realtime 2D W Doppler & Color Flow Completed Hosp 07/18/2019 42833 EKG Tracing & Interpretation Completed 01/11/2019 77921407 Colonoscopy Completed Medical Devices Description No Information Available Encounters Type Date Location Provider Dx Diagnosis Office Visit 10/31/2019 [facility] Internal Fernando Jane S[employer]IOR [employer] DEVELOPER Z00.01 Encounter for 1:00p Medicine - [facility] general adult medical exam w abnormal findings E78.5 Hyperlipidemia, unspecified I10 Essential (primary) hypertension F17.210 Nicotine dependence, cigarettes, uncomplicated F41.9 Anxiety disorder, unspecified F32.89 Other specified depressive episodes J44.9 Chronic obstructive pulmonary disease, unspecified Office Visit 10/17/2019 3:40p [facility] Internal Fernando Jane, E78.5 Hyperlipidemia, Medicine - S[employer]IOR [employer] DEVELOPER unspecified [facility] I95.1 Orthostatic hypotension Office Visit 10/10/2019 [facility] Rogers Tavera, I95.1 Orthostatic 7:00a Clinic hypotension Z86.73 Prsnl hx of TIA (TIA), and cereb infrc w/o resid deficits Office Visit 10/10/2019 [facility] Nyla Altamirano, I95.1 Orthostatic 9:44a Assoc,pc [employer] DEVELOPER hypotension Hospitalists E78.5 Hyperlipidemia, unspecified Office Visit 10/08/2019 [facility] Rosa Maria R41.82 Altered mental 9:44a Assoc,pc [place], S[employer]IOR [employer] DEVELOPER status, Hospitalists unspecified R29.818 Other symptoms and signs involving the nervous system R29.6 Repeated falls Office Visit 08/19/2019 8:40a [facility] Internal Fernando Jane, F17.210 Nicotine dependence, Medicine - S[employer]IOR [employer] DEVELOPER cigarettes, [facility] uncomplicated F41.9 Anxiety disorder, unspecified R06.02 Shortness of breath F32.89 Other specified depressive episodes I10 Essential (primary) hypertension Office Visit 07/18/2019 8:50a [facility] Internal Patrica Z01.818 Encounter for other Medicine - Eleazar Goodwin preprocedural Ccmob examination M25.551 Pain in right hip I10 Essential (primary) hypertension Z23 Encounter for immunization Z11.1 Encounter for screening for respiratory tuberculosis F41.9 Anxiety disorder, unspecified F17.210 Nicotine dependence, cigarettes, uncomplicated E78.5 Hyperlipidemia, unspecified R73.01 Impaired fasting glucose Z11.4 Encounter for screening for human immunodeficiency virus Z11.3 Encntr screen for infections w sexl mode of transmiss J44.9 Chronic obstructive pulmonary disease, unspecified Z86.010 Personal history of colonic polyps Assessments Date Code Description Provider 11/16/2019 I10 Essential (primary) hypertension Fernando Buck, S[employer]IOR [employer] DEVELOPER 11/16/2019 Z11.1 Encounter for screening for respiratory Fernando Buck, S[employer]IOR [employer] DEVELOPER tuberculosis 11/16/2019 F41.9 Anxiety disorder, unspecified Fernando Buck, S[employer]IOR [employer] DEVELOPER 10/31/2019 Z00.01 Encounter for general adult medical Fernandodaily Jane, S[employer]IOR [employer] DEVELOPER examination with abnormal findings 10/31/2019 E78.5 Hyperlipidemia, unspecified Fernando Buck, S[employer]IOR [employer] DEVELOPER 10/31/2019 I10 Essential (primary) hypertension Fernando Buck, S[employer]IOR [employer] DEVELOPER 10/31/2019 F17.210 Nicotine dependence, cigarettes, Fernando Buck, S[employer]IOR [employer] DEVELOPER uncomplicated 10/31/2019 F41.9 Anxiety disorder, unspecified Fernando Buck, S[employer]IOR [employer] DEVELOPER 10/31/2019 F32.89 Other specified depressive episodes Fernando Buck, S[employer]IOR [employer] DEVELOPER 10/31/2019 J44.9 Chronic obstructive pulmonary disease, Fernando Buck, S[employer]IOR [employer] DEVELOPER unspecified 10/17/2019 E78.5 Hyperlipidemia, unspecified Fernando Buck, S[employer]IOR [employer] DEVELOPER 10/17/2019 I95.1 Orthostatic hypotension Fernandodaily Jane, S[employer]IOR [employer] DEVELOPER 10/10/2019 I95.1 Orthostatic hypotension Rogers Tavera MD 10/10/2019 G45.9 Transient cerebral ischemic attack, David Dickson M.D. unspecified 10/10/2019 Z86.73 Personal history of transient ischemic Rogers Tavera MD attack (TIA), and cerebral infarction without residual deficits 10/10/2019 I95.1 Orthostatic hypotension Nyla Altamirano, TIFAFNIE 10/10/2019 E78.5 Hyperlipidemia, unspecified Nyla Altamirano, TIFFANIE 10/09/2019 R29.818 Other symptoms and signs involving the Nyla Altamirano NP nervous system 10/09/2019 I10 Essential (primary) hypertension Nyla Altamirano, TIFFANIE 10/09/2019 E78.5 Hyperlipidemia, unspecified Nyla Altamirano, TIFFANIE 10/08/2019 R41.82 Altered mental status, unspecified Rosa Maria Coello, TIFFANIE 10/08/2019 R29.818 Other symptoms and signs involving the Rosa Maria Coello NP nervous system 10/08/2019 R29.6 Repeated falls Rosa Maria Coello, SENIOR [employer] DEVELOPER 08/19/2019 F17.210 Nicotine dependence, cigarettes, Fernando Jane, S[employer]IOR [employer] DEVELOPER uncomplicated 08/19/2019 F41.9 Anxiety disorder, unspecified Fernandodaily Jane, S[employer]IOR [employer] DEVELOPER 08/19/2019 R06.02 Shortness of breath Fernando Jane, [employer] DEVELOPER 08/19/2019 F32.89 Other specified depressive episodes Fernando Jane, TIFFANIE 08/19/2019 I10 Essential (primary) hypertension Fernando Jane, TIFFANIE 07/18/2019 Z01.818 Encounter for other preprocedural Patrica Goodwin M.D. examination 07/18/2019 M25.551 Pain in right hip Patrica Goodwin M.D. 07/18/2019 I10 Essential (primary) hypertension Patrica Goodwin M.D. 07/18/2019 Z23 Encounter for immunization Patrica Goodwin M.D. 07/18/2019 Z11.1 Encounter for screening for respiratory Patrica Goodwin M.D. tuberculosis 07/18/2019 F41.9 Anxiety disorder, unspecified Patrica Goodwin M.D. 07/18/2019 F17.210 Nicotine dependence, cigarettes, Patrica Goodwin M.D. uncomplicated 07/18/2019 E78.5 Hyperlipidemia, unspecified Patrica Goodwin M.D. 07/18/2019 R73.01 Impaired fasting glucose Patrica Goodwin M.D. 07/18/2019 Z11.4 Encounter for screening for human Patrica Goodwin M.D. immunodeficiency virus [HIV] 07/18/2019 Z11.3 Encounter for screening for infections with Patrica Goodwin M.D. a predominantly sexual mode of transmission 07/18/2019 J44.9 Chronic obstructive pulmonary disease, Patrica Goodwin M.D. unspecified 07/18/2019 Z86.010 Personal history of colonic polyps Patrica Goodwin M.D. Plan of Treatment Future Appointment(s):05/16/2020 1:40 pm - Fernando Jane NP at [facility] Internal Medicine - [facility]11/18/2019 2:30 pm - Nurse Visit A at [facility] Internal Medicine - [facility]11/16/2019 - Fernando Jane NPI10 Essential (primary) hypertensionComments: HYPERTENSION:Controlled on current regimen. Continue present management.Follow up:6 wmczgcI67.1 Encounter for screening for respiratory tuberculosisFollow up:N /V Thursday after 2pmF41.9 Anxiety disorder, unspecified Functional Status Description No Information Available Mental Status Description No Information Available Referrals Description No Information Available
[2020-01-09] MEDS ORDERED: Acetaminophen / Codeine* #3 (300 MG/30 MG) TAB PO ONE (16:16)
--- NOTE | 2020-01-21 05:49 | ED ---
Lower Extremity - HPI Summary HPI Summary: This patient is a 54-year-old male presenting to the ED with a left knee injury. Patient states he fell directly onto his left knee last evening. He feels he is unable to bear weight properly. He has been ambulating, however he has been "limping" and feels the knee will "give out" on him. No hx of fracture to the knee, or any ligamentous injury. Pain rated 2/10 constant and worse with attempting to ambulate. Also notes to a L great toe injury simultaneously. States he does not want an xray to the toe. Has been taking his pain medication at home with some relief. - History of Current Complaint Chief Complaint: EDExtremityLower Stated Complaint: L LEG INJ PER PT Time Seen by Provider: 01/09/20 15:36 Hx Obtained From: Patient Mechanism Of Injury: Direct Blow Onset of Pain: Minutes Onset/Duration: Minutes Severity Initially: Mild Severity Currently: Mild Pain Intensity: 4 Pain Scale Used: 0-10 Numeric Timing: Constant Location: Is Discrete @ - left anterior knee Character Of Pain: Aching Associated Signs And Symptoms: Negative: Swelling, Redness, Bruising Aggravating Factor(s): Standing, Ambulation Alleviating Factor(s): Rest Able to Bear Weight: Yes - Risk Factors Gout Risk Factors: Negative DVT Risk Factors: Negative Septic Arthritis Risk Factor: Negative - Allergies/Home Medications Allergies/Adverse Reactions: Allergies Allergy/AdvReac Type Severity Reaction Status Date / Time buspirone [From BuSpar] Allergy Tinnitus Verified 01/17/20 14:37 hydrocodone Allergy Itching Verified 01/17/20 14:37 Home Medications: Home Medications Cyclobenzaprine TAB* [Flexeril 10 MG TAB*] 10 mg PO TID PRN 12/02/17 [History Confirmed 11/23/19] Gabapentin 800 mg PO TID 01/27/18 [History Confirmed 11/23/19] oxyCODONE/Acetamin 5/325 MG* [Percocet 5/325 TAB*] 5 - 325 mg PO TID MDD 3 01/27 [History Confirmed 11/23/19] ALPRAZolam TAB* [Xanax TAB*] 0.5 mg PO BID PRN 10/06/18 [History Confirmed 11/23] Amlodipine Besylate [Norvasc] 10 mg PO DAILY 12/10/18 [History Confirmed ] Atorvastatin* [Lipitor 80 MG*] 60 mg PO DAILY 12/10/18 [History Confirmed ] Nicotine GUM* (NF) [Nicotine GUM*] 2 mg PO Q2H PRN 12/10/18 [History Confirmed 11/23/19] buPROPion SR TAB* [Wellbutrin SR TAB*] 450 mg PO DAILY 12/10/18 [History Confirmed 11/23/19] Albuterol inh POWDER (NF) [Proair Respiclick] 1 - 2 puff INH Q4H PRN 10/08/19 [ History Confirmed 11/23/19] Budesonide/Formote 160/4.5(NF) [Symbicort 160/4.5 (NF)] 2 puff INH BID 10/08/19 [History Confirmed 11/23/19] Aspirin 81 mg CHEW TAB* 81 mg PO DAILY #30 tab.chew 10/10/19 [Rx Confirmed 11/23] Ezetimibe TAB* [Zetia TAB*] 10 mg PO 1700 #30 tab 10/10/19 [Rx Confirmed ] Zolpidem TAB* [Ambien TAB*] 10 mg PO BEDTIME PRN 10/26/19 [History Confirmed ] Amoxicillin PO (*) [Amoxicillin 875 MG (*)] 875 mg PO BID #20 tab 01/17/20 [Rx] PMH/Surg Hx/FS Hx/Imm Hx Previously Healthy: Yes Endocrine/Hematology History: Denies: Hx Anticoagulant Therapy, Hx Diabetes, Hx Thyroid Disease Cardiovascular History: Reports: Hx Hypercholesterolemia, Hx Hypertension - seeing PCP this week- BP elevated here today Denies: Hx Pacemaker/ICD Respiratory History: Reports: Other Respiratory Problems/Disorders - chronic cough, SOB with activity Denies: Hx Asthma, Hx Chronic Obstructive Pulmonary Disease (COPD) History: Denies: Hx Renal Disease Musculoskeletal History: Reports: Other Musculoskeletal History - had left foot surgery two years ago- states now has titanium screws Sensory History: Reports: Hx Contacts or Glasses Denies: Hx Hearing Aid Opthamlomology History: Reports: Hx Contacts or Glasses Neurological History: Reports: Hx CVA Denies: Hx Dementia, Hx Seizures Psychiatric History: Reports: Hx Anxiety, Hx Inpatient Treatment - at [facility] [place], Hx [facility] Tx - states he met with Dr. 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 REMOVAL OF BONE SPURS FROM RIGHT HIP 07/22/[address] Cai at [facility] - Immunization History Date of Tetanus Vaccine: unknown Date of Influenza Vaccine: no Hx Pertussis Vaccination: No Immunizations Up to Date: Yes Infectious Disease History: No Infectious Disease History: Denies: Hx Hepatitis, Hx Human Immunodeficiency Virus (HIV), Traveled Outside the [place] in Last 30 Days - Family History Known Family History: Positive: Other - Stroke in sister at age 42 - Social History Occupation: Employed Full-time Lives: With Family Alcohol Use: None Alcohol Amount: 1-2 times per year Hx Substance Use: Yes Substance Use Type: Reports: None Substance Use Comment - Amount & Last Used: xanax, vicodin Hx Tobacco Use: Yes Smoking Status (MU): Current Every Day Smoker Type: Cigarettes Amount Used/How Often: 1/2 PPD Length of Time of Smoking/Using Tobacco: age 10 Have You Smoked in the Last Year: Yes Review of Systems Negative: Fever, Chills, Fatigue, Skin Diaphoresis Negative: Shortness Of Breath, Cough Genitourinary: Negative Positive: no symptoms reported, see HPI Positive: Arthralgia Skin: Negative Neurological/Mental Status: Negative All Other Systems Reviewed And Are Negative: Yes Physical Exam Triage Information Reviewed: Yes Vital Signs On Initial Exam: Initial Vitals Temp Pulse Resp BP Pulse Ox 98.7 F 90 18 123/82 98 01/09/20 15:01/09/20 15:01/09/20 15:01/09/20 15:01/09/20 15:09 Vital Signs Reviewed: Yes Appearance: Positive: Well-Appearing, Well-Nourished Skin: Positive: Warm, Skin Color Reflects Adequate Perfusion Head/Face: Positive: Normal Head/Face Inspection Eyes: Positive: EOMI, YAMILE, Conjunctiva Clear Neck: Positive: Supple, No Lymphadenopathy Respiratory/Lung Sounds: Positive: Clear to Auscultation, Breath Sounds Present Cardiovascular: Positive: RRR, Pulses are Symmetrical in both Upper and Lower Extremities Musculoskeletal: Positive: Pain @ - left great toe and anterior and posterior aspect of L knee Psychiatric: Positive: Affect/Mood Appropriate Procedures - Sedation Patient Received Moderate/Deep Sedation with Procedure: No Diagnostics - Vital Signs Vital Signs Temp Pulse Resp BP Pulse Ox 01/09/20 16:49 98.8 F 90 18 123/82 98 01/09/20 15:09 98.7 F 90 18 123/82 98 - Laboratory Lab Statement: Any lab studies that have been ordered have been reviewed, and results considered in the medical decision making process. Lower Extremity Course/Dx - Course Course Of Treatment: Thorough physical exam was performed, focusing on special knee tests. Pain on palpation over the posterior aspect and lateral aspect of the knee with no evidence of effusion. Valgus and varus force without pain. No posterior sag sign. Negative posterior drawer test. Negative anterior drawer test. Quadriceps active test negative. No laxity in the joint noted. No temperature change or pallor noted bilaterally. No ecchymosis noted over the knee. There is ecchymosis to the left great toe. Patient able to bear weight, however with discomfort. Due to the patient feeling lacks in the joint as well as inability to bear weight, knee immobilizer and crutches given. He will follow-up with orthopedics. X-ray of the left knee obtained. No acute findings. - Diagnoses Differential Diagnosis/HQI/PQRI: Positive: Sprain, Strain, Other - acl, mcl, pcl Provider Diagnoses: Contusion, knee Discharge ED - Sign-Out/Discharge Documenting (check all that apply): Patient Departure - Discharge Plan Condition: Stable Disposition: HOME Patient Education Materials: Knee Pain (ED) Referrals: Abe Shah MD [Medical Doctor] - Fernando Jane NP [Primary Care Provider] - Additional Instructions: Please follow up with ortho - Billing Disposition and Condition Condition: STABLE Disposition: Home
== END 2020-01-09 16:49 | disposition home or self-care (01) ==
LOC: ED 15:07
DX: S80.02XA Contusion of left knee, initial encounter (principal); S99.922A Unspecified injury of left foot, initial encounter; W19.XXXA Unspecified fall, initial encounter; Y92.9 Unspecified place or not applicable; E78.00 Pure hypercholesterolemia, unspecified; I10 Essential (primary) hypertension; F41.9 Anxiety disorder, unspecified; Z79.899 Other long term (current) drug therapy; Z88.5 Allergy status to narcotic agent; Z88.8 Allergy status to other drugs, medicaments and biological substances; F17.210 Nicotine dependence, cigarettes, uncomplicated
CPT/HCPCS: 99283; A9270-GY

== ENCOUNTER 2020-01-17 14:23 | Emergency (ER) | payer OTHER ==
[2020-01-17 14:32] VITALS: BP 104/67
--- NOTE | 2020-01-17 14:44 | UC ---
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 He is a smoker with COPD, and takes advair and uses albuterol once daily. He is not short of breath. Has partner who had fever anc cough about a week ago, who is concerned that he has passed on infection. No known contact with individual with COVID and has not had recent travel. 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 He has not take antipyretics today. Typically, such symptoms trigger COPD exacerbation. - History of Current Complaint Chief Complaint: EDFluSymptoms Stated Complaint: FLU LIKE SYMPTOMS Time Seen by Provider: 01/17/20 14:26 Hx Obtained From: Patient Onset/Duration: Sudden Onset, Lasting Hours - about 5 Timing: Intermittent Episodes - sweating has decreased Severity Initially: Mild Severity Currently: Mild Pain Intensity: 0 Character: Cough: Productive Aggravating Factors: Nothing Alleviating Factors: Bronchodilator Associated Signs And Symptoms: Positive: Chills. Negative: Dyspnea, URI, Nasal Congestion - Risk Factors Pulmonary Embolism Risk Factors: Smoking Cardiac Risk Factors: Smoking, Elevated Lipids Pseudomonas Risk Factors: Negative Tuberculosis Risk Factors: Negative - Allergies/Home Medications Allergies/Adverse Reactions: Allergies Allergy/AdvReac Type Severity Reaction Status Date / Time buspirone [From BuSpar] Allergy Tinnitus Verified 01/17/20 14:37 hydrocodone Allergy Itching Verified 01/17/20 14:37 Home Medications: Home Medications Cyclobenzaprine TAB* [Flexeril 10 MG TAB*] 10 mg PO TID PRN 12/02/17 [History Confirmed 11/23/19] Gabapentin 800 mg PO TID 01/27/18 [History Confirmed 11/23/19] oxyCODONE/Acetamin 5/325 MG* [Percocet 5/325 TAB*] 5 - 325 mg PO TID MDD 3 01/27 [History Confirmed 11/23/19] ALPRAZolam TAB* [Xanax TAB*] 0.5 mg PO BID PRN 10/06/18 [History Confirmed 11/23] Amlodipine Besylate [Norvasc] 10 mg PO DAILY 12/10/18 [History Confirmed ] Atorvastatin* [Lipitor 80 MG*] 60 mg PO DAILY 12/10/18 [History Confirmed ] Nicotine GUM* (NF) [Nicotine GUM*] 2 mg PO Q2H PRN 12/10/18 [History Confirmed 11/23/19] buPROPion SR TAB* [Wellbutrin SR TAB*] 450 mg PO DAILY 12/10/18 [History Confirmed 11/23/19] Albuterol inh POWDER (NF) [Proair Respiclick] 1 - 2 puff INH Q4H PRN 10/08/19 [ History Confirmed 11/23/19] Budesonide/Formote 160/4.5(NF) [Symbicort 160/4.5 (NF)] 2 puff INH BID 10/08/19 [History Confirmed 11/23/19] Aspirin 81 mg CHEW TAB* 81 mg PO DAILY #30 tab.chew 10/10/19 [Rx Confirmed 11/23] Ezetimibe TAB* [Zetia TAB*] 10 mg PO 1700 #30 tab 10/10/19 [Rx Confirmed ] Zolpidem TAB* [Ambien TAB*] 10 mg PO BEDTIME PRN 10/26/19 [History Confirmed ] Amoxicillin PO (*) [Amoxicillin 875 MG (*)] 875 mg PO BID #20 tab 01/17/20 [Rx] PMH/Surg Hx/FS Hx/Imm Hx - Additional Past Medical History Additional PMH: Chronic pain--chronic opioid use Respiratory History: COPD Psychological History: Anxiety Other History Of: Negative For: Anticoagulant Therapy - Surgical History Surgical History: Yes Surgery Procedure, Year, and Place: 2007- LEFT FOOT BUNIONECTOMY WITH PINNING; AGE 18 APPENDECTOMY. REMOVAL OF BONE SPURS FROM RIGHT HIP 07/22/[address] Cai at [facility] - Family History Known Family History: Positive: Other - Stroke in sister at age 42 - Social History Occupation: Employed Full-time Lives: With Family Alcohol Use: None Alcohol Amount: 1-2 times per year Substance Use Type: None Substance Use Comment - Amount & Last Used: xanax, vicodin Smoking Status (MU): Current Every Day Smoker Type: Cigarettes Amount Used/How Often: 1/2 PPD Length of Time of Smoking/Using Tobacco: age 10 Have You Smoked in the Last Year: Yes Household Exposure Type: Cigarettes - Immunization History Most Recent Influenza Vaccination: NONE Most Recent Tetanus Shot: UTD Most Recent Pneumonia Vaccination: unknown Review of Systems All Other Systems Reviewed And Are Negative: Yes Constitutional: Positive: Chills Skin: Positive: Negative Eyes: Positive: Negative Respiratory: Positive: Cough - productive. Negative: Shortness Of Breath Cardiovascular: Negative: Palpitations, Chest Pain Gastrointestinal: Positive: Vomiting - x 1 this morning, thought secondary to meds. Genitourinary: Positive: Negative Neurovascular: Positive: Negative Musculoskeletal: Positive: Negative Neurological/Mental Status: Positive: Negative Psychological: Positive: Negative Physical Exam Triage Information Reviewed: Yes Appearance: Well-Appearing, Other: - occasional congested cough. Vital Signs: Initial Vital Signs Temp 99.3 F 01/17/20 14:29 Pulse 100 01/17/20 14:29 Resp 19 01/17/20 14:29 BP 104/67 01/17/20 14:29 Pulse Ox 96 01/17/20 14:29 Eyes: Positive: Conjunctiva Clear Neck: Positive: Supple, Nontender, No Lymphadenopathy Respiratory: Positive: Lungs clear, Normal breath sounds, No respiratory distress Cardiovascular: Positive: RRR, No Murmur, Pulses Normal Abdomen Description: Positive: Nontender, No Organomegaly Musculoskeletal Exam: Normal Neurological Exam: Normal Neurological: Positive: Alert Psychological Exam: Normal Skin Exam: Normal Procedures - Sedation Patient Received Moderate/Deep Sedation with Procedure: No - NO procedure, no sedation! Diagnostics - Laboratory Lab Results: Flu swab pending at the time of discharge. Respiratory Course/Dx - Course Course Of Treatment: Given COPD history, will cover with amoxicillin. Off work x 2 days and will self monitor at home for progressive symptoms. - Differential Dx/Diagnosis Differential Diagnosis/HQI/PQRI: Bronchitis, Exacerbation Of COPD, Influenza, Lower Resp Infection Provider Diagnosis: Viral syndrome, COPD (chronic obstructive pulmonary disease) Discharge ED - Sign-Out/Discharge Documenting (check all that apply): Patient Departure - Discharge Plan Condition: Stable Disposition: HOME Prescriptions: Amoxicillin PO (*) [Amoxicillin 875 MG (*)] 875 mg PO BID #20 tab Patient Education Materials: Viral Syndrome (ED) Forms: *Work Release Referrals: Fernando Jane, [employer]ESSION[employer] [Primary Care Provider] - Additional Instructions: We will call you IF the flu test is positive. Please stay at home using self isolation guidelines. Off work through 01/18, and follow up if you develop fever or have shortness of breath. You have been prescribed amoxicillin due to your history of COPD. - Billing Disposition and Condition Condition: STABLE Disposition: Home
[2020-01-17 15:16] LABS: Influenza A Molecular Negative (Negative); Influenza B Molecular Negative (Negative)
== END 2020-01-17 15:09 | disposition home or self-care (01) ==
LOC: ED 14:23
DX: B34.9 Viral infection, unspecified (principal); J44.9 Chronic obstructive pulmonary disease, unspecified; F17.210 Nicotine dependence, cigarettes, uncomplicated; Z79.899 Other long term (current) drug therapy; Z79.891 Long term (current) use of opiate analgesic
CPT/HCPCS: 99282

== ENCOUNTER 2023-03-19 10:07 | Observation (INO) ==
[2023-03-19 10:34] LABS: ABS Basophils 0.1 10^3/uL (0.0-0.1); ABS Eosinophils 0.5 10^3/uL (0.0-0.5); ABS Lymphocytes 4.7 10^3/uL (1.0-4.8); ABS Monocytes 1.1 10^3/uL (0.0-1.1); ABS Neutrophils 5.5 10^3/uL (1.5-7.6); ABS Nucleated RBC 0.04 10^3/ul; Eosinophil % 3.8 %; Hematocrit 37.6 % (38-53); Hemoglobin 12.5 g/dL (13.2-16.3); Lymphocyte % 39.6 %; Mean Corpuscular Hemoglobin 28.6 pg (27-33); Mean Corpuscular Hgb Conc 33.3 g/dL (31-36); Mean Corpuscular Volume 85.7 fL (80-97); Mean Platelet Volume 6.7 fL (7.5-11.2); Nucleated Red Blood Cells % 0.3 /100 WBC (0.0-0.4); Platelet Count 430 10^3/uL (150-450); Red Blood Count 4.38 10^6/uL (4.06-5.63); Red Cell Distribution Width 15.1 % (12-17); White Blood Count 11.9 10^3/uL (3.6-10.2)
[2023-03-19] MEDS ORDERED: Iodixanol (CONTRAST) 320 MG/ML 100 ML SDV IV ONE (10:41)
[2023-03-19 10:43] LABS: Activated Partial Thrombo Time 34.8 seconds (26.0-38.0); INR 0.99 (0.88-1.18)
[2023-03-19 10:57] LABS: ALT 12 U/L (7-52); AST 10 U/L (13-39); Albumin 3.8 g/dL (3.2-5.2); Albumin/Globulin Ratio 1.5 (1-3); Alkaline Phosphatase 89 U/L (35-149); Anion Gap 10 mmol/L (2-16); Blood Urea Nitrogen 23 mg/dL (6-24); CO2 Carbon Dioxide 31 mmol/L (22-32); Calcium 8.7 mg/dL (8.6-10.3); Chloride 101 mmol/L (101-111); Cholesterol 102 mg/dL; Creatinine, Serum 1.56 mg/dL (0.67-1.17); Globulin 2.6 g/dL (2-4); Glucose 94 mg/dL (70-100); LDL Cholesterol 24 mg/dL; Sodium 142 mmol/L (135-145); Total Protein 6.4 g/dL (6.4-8.9); Triglycerides 266 mg/dL; eGFR CKD-EPI 52.1 (>60)
[2023-03-19] MEDS ORDERED: Lactated Ringers 1000 ml BAG 1,000 ML IV ONE (11:26)
[2023-03-19 13:39] LABS: C Reactive Protein 41.23 mg/L (<8.01)
[2023-03-19] MEDS ORDERED: Albuterol HFA INHALER 8 gm MDI INH PRN (13:53)
[2023-03-19 14:17] LABS: TSH Ultra Thyroid Stim Horm 2.34 mcIU/mL (0.34-5.60)
[2023-03-19 15:00] LABS: Alcohol, S < 13 mg/dL (<13)
[2023-03-19] MEDS: oxyCODONE/Acetamin 5/325 mg TAB PO PRN ×2 (16:02→21:52)
[2023-03-19 17:32] LABS: Vitamin B12 300 pg/mL (180-914)
[2023-03-19] MEDS: NS 0.9% 1000 ml BAG 1,000 ML IV SCH (21:51)
[2023-03-19 23:53] LABS: Urine Appearance Cloudy; Urine Bacteria Absent (Absent); Urine Bilirubin Negative (Negative); Urine Blood Negative (Negative); Urine Color Yellow; Urine Glucose Negative (Negative); Urine Ketones Negative (Negative); Urine Nitrite Negative (Negative); Urine Protein 1+(30 mg/dL) (Negative); Urine Red Blood Cell Absent (Absent); Urine Urobilinogen Negative (Negative); Urine White Blood Cell 1+(6-10/hpf) (Absent)
[2023-03-20 00:05] LABS: Urine Benzodiazepine Screen Presumptive Positive (None Detect); Urine Cannabinoids Screen Presumptive Positive (None Detect); Urine Opiates Screen None Detected (None Detect)
[2023-03-20 01:01] LABS: Urine Sodium Concentration < 18 mmol/L
[2023-03-20 01:10] LABS: Urine Creatinine Concentration 271.54 mg/dL (20.00-370.00)
[2023-03-20] MEDS: oxyCODONE/Acetamin 5/325 mg TAB PO PRN ×2 (04:19→11:43)
[2023-03-20] MEDS ORDERED: Ondansetron 4 mg VIAL 2 MG/ML 2 ml VIAL IV ONE (04:28)
[2023-03-20] MEDS: NS 0.9% 1000 ml BAG 1,000 ML IV SCH (05:37)
[2023-03-20 06:40] LABS: ABS Eosinophils 0.2 10^3/uL (0.0-0.5); ABS Lymphocytes 1.3 10^3/uL (1.0-4.8); ABS Monocytes 1.2 10^3/uL (0.0-1.1); ABS Neutrophils 9.3 10^3/uL (1.5-7.6); ABS Nucleated RBC 0.01 10^3/ul; Eosinophil % 1.8 %; Hematocrit 32.2 % (38-53); Hemoglobin 10.8 g/dL (13.2-16.3); Lymphocyte % 11.2 %; Mean Corpuscular Hgb Conc 33.5 g/dL (31-36); Mean Corpuscular Volume 86.5 fL (80-97); Mean Platelet Volume 6.9 fL (7.5-11.2); Platelet Count 377 10^3/uL (150-450); Red Blood Count 3.73 10^6/uL (4.06-5.63); Red Cell Distribution Width 15.4 % (12-17)
[2023-03-20 06:53] LABS: Calcium 8.2 mg/dL (8.6-10.3); Creatinine, Serum 1.04 mg/dL (0.67-1.17); Magnesium 1.4 mg/dL (1.9-2.7); Potassium 4.4 mmol/L (3.5-5.0); eGFR CKD-EPI 84.8 (>60)
[2023-03-20] MEDS ORDERED: Magnesium Sulfate IV 3 GM in NS 0.9% 100 ml BAG 100 ML IVPB ONE (07:40)
[2023-03-20 08:12] LABS: Urine Specific Gravity > 1.060 (1.002-1.030)
[2023-03-20] MEDS ORDERED: Nicotine PATCH 14 MG/24 HR PATCH TRANSDERM SCH (09:00)
[2023-03-20] MEDS ORDERED: FLUTICAS/UMECLI/VILANT 100-62.5-25 MDI (NF) INH SCH (09:00)
[2023-03-20 16:08] VITALS: BP 99/57
== END 2023-03-20 15:48 | disposition short-term general hospital (02) ==
LOC: ED 10:07 → EDHOLD 11:47 → INTOOBSV 11:47 → MEDTELE 21:16
PROVIDERS: ADMIT Internal Medicine; ATTEND Internal Medicine

== ENCOUNTER 2024-02-05 17:56 | Observation (INO) ==
[2024-02-05 19:34] LABS: ABS Basophils 0.1 10^3/uL (0.0-0.1); ABS Eosinophils 0.4 10^3/uL (0.0-0.5); ABS Lymphocytes 2.8 10^3/uL (1.0-4.8); ABS Monocytes 0.6 10^3/uL (0.0-1.1); ABS Neutrophils 4.5 10^3/uL (1.5-7.6); ABS Nucleated RBC 0.02 10^3/ul; Eosinophil % 4.2 %; Hematocrit 42.5 % (38-53); Lymphocyte % 33.7 %; Mean Corpuscular Hemoglobin 28.1 pg (27-33); Mean Corpuscular Volume 85.1 fL (80-97); Mean Platelet Volume 6.9 fL (7.5-11.2); Nucleated Red Blood Cells % 0.2 %/100WBC (0.0-0.8); Platelet Count 264 10^3/uL (150-450); Red Blood Count 4.99 10^6/uL (4.06-5.63); Red Cell Distribution Width 16.3 % (12-17); White Blood Count 8.4 10^3/uL (3.6-10.2)
[2024-02-05 19:46] LABS: INR 1.02 (0.83-1.13)
[2024-02-05 20:03] LABS: Albumin 3.9 g/dL (3.2-5.2); Albumin/Globulin Ratio 1.6 (1-3); C Reactive Protein 76.33 mg/L (<8.01); Calcium 8.5 mg/dL (8.6-10.3); Creatinine, Serum 1.05 mg/dL (0.67-1.17); Globulin 2.4 g/dL (2-4); Total Bilirubin 0.4 mg/dL (0.2-1.0); Total Protein 6.3 g/dL (6.4-8.9); eGFR CKD-EPI 83.3 (>60)
[2024-02-05] MEDS: Albuterol/Ipratropium NEB.SOL (2.5/0.5 MG) 3 ML NEB.SOLN INH ONE (21:36)
[2024-02-05] MEDS: Magnesium Sulfate 2 gm BAG 2 GM/50 ML BAG IVPB ONE (21:38)
[2024-02-05] MEDS: methylPREDNISolone SOD SUCC 125 mg 2 ML VIAL IV ONE (21:38)
[2024-02-05] MEDS: Iohexol 350 (CONTRAST) 500 ML MDV IV ONE (22:15)
[2024-02-05] MEDS: cefTRIAXone 1 gm/50 mL D5W 1 GM/50 ML BAG IV ONE (23:58)
[2024-02-06] MEDS: Albuterol/Ipratropium NEB.SOL (2.5/0.5 MG) 3 ML NEB.SOLN INH ONE
[2024-02-06] MEDS: Azithromycin 500 mg/250 ml NS 500 MG/250 ML BAG IVPB ONE (00:29)
[2024-02-06] MEDS ORDERED: Albuterol/Ipratropium NEB.SOL (2.5/0.5 MG) 3 ML NEB.SOLN INH PRN (02:31)
[2024-02-06 03:09] LABS: HDL Cholesterol 35.4 mg/dL
[2024-02-06] MEDS: CMCS:FLUTICAS/UMECLI/VILANT 100-62.5-25 MDI (NF) INH SCH (07:04)
[2024-02-06 07:24] LABS: ABS Lymphocytes 1.2 10^3/uL (1.0-4.8); ABS Monocytes 0.1 10^3/uL (0.0-1.1); ABS Neutrophils 5.8 10^3/uL (1.5-7.6); ABS Nucleated RBC 0.01 10^3/ul; Hematocrit 40.9 % (38-53); Hemoglobin 13.6 g/dL (13.2-16.3); Lymphocyte % 17.3 %; Mean Corpuscular Hemoglobin 28.3 pg (27-33); Mean Corpuscular Hgb Conc 33.1 g/dL (31-36); Mean Corpuscular Volume 85.3 fL (80-97); Mean Platelet Volume 7.1 fL (7.5-11.2); Nucleated Red Blood Cells % 0.1 %/100WBC (0.0-0.8); Platelet Count 247 10^3/uL (150-450); Red Cell Distribution Width 16.1 % (12-17); White Blood Count 7.2 10^3/uL (3.6-10.2)
[2024-02-06 07:53] LABS: Calcium 9.2 mg/dL (8.6-10.3); Creatinine, Serum 1.24 mg/dL (0.67-1.17); Magnesium 1.7 mg/dL (1.9-2.7); Potassium 4.6 mmol/L (3.5-5.0); eGFR CKD-EPI 68.2 (>60)
[2024-02-06] MEDS: Nicotine PATCH 21 MG/24 HR PATCH TRANSDERM SCH (08:57)
[2024-02-06] MEDS: Influenza vaccine *QUAD* *2023-24* 0.5 ML SYRINGE IM ONE (08:59)
[2024-02-06] MEDS: Magnesium Sulfate 2 gm BAG 2 GM/50 ML BAG IVPB ONE (09:00)
[2024-02-06 11:52] LABS: HIV 4th Generation Nonreactive (Nonreactive)
[2024-02-06] MEDS ORDERED: Sodium Chloride(INHALANT) 3% 4 ML NEB.SOLN INH PRN (15:55)
[2024-02-06 19:06] LABS: Urine Appearance Clear; Urine Bilirubin Negative (Negative); Urine Blood Negative (Negative); Urine Color Light-Yellow; Urine Glucose 3+ (>=300 mg/dL) (Negative); Urine Ketones Trace (Negative); Urine Nitrite Negative (Negative); Urine Protein Negative (Negative); Urine Specific Gravity 1.034 (1.002-1.030); Urine Urobilinogen Negative (Negative); Urine pH 5.5 (5.0-8.0)
[2024-02-06] MEDS: Enoxaparin 40 MG/0.4 ML SYR SUBCUT SCH (21:32)
[2024-02-06] MEDS: Azithromycin 500 mg/250 ml NS 500 MG/250 ML BAG IVPB SCH (21:32)
[2024-02-06] MEDS: cefTRIAXone 1 gm/50 mL D5W 1 GM/50 ML BAG IV SCH (22:26)
[2024-02-07 07:35] LABS: ABS Eosinophils 0.1 10^3/uL (0.0-0.5); ABS Lymphocytes 3.4 10^3/uL (1.0-4.8); ABS Neutrophils 8.9 10^3/uL (1.5-7.6); ABS Nucleated RBC 0.01 10^3/ul; Eosinophil % 0.5 %; Hemoglobin 14.1 g/dL (13.2-16.3); Lymphocyte % 25.3 %; Mean Corpuscular Hemoglobin 27.8 pg (27-33); Mean Corpuscular Hgb Conc 32.8 g/dL (31-36); Mean Corpuscular Volume 84.8 fL (80-97); Nucleated Red Blood Cells % 0.1 %/100WBC (0.0-0.8); Platelet Count 262 10^3/uL (150-450); Red Blood Count 5.07 10^6/uL (4.06-5.63); White Blood Count 13.4 10^3/uL (3.6-10.2)
[2024-02-07 07:47] LABS: Calcium 9.2 mg/dL (8.6-10.3); Creatinine, Serum 1.15 mg/dL (0.67-1.17); Magnesium 1.7 mg/dL (1.9-2.7); Potassium 4.6 mmol/L (3.5-5.0); eGFR CKD-EPI 74.7 (>60)
[2024-02-07 12:28] LABS: C Reactive Protein 21.88 mg/L (<8.01)
[2024-02-07] MEDS: Magnesium Sulfate 2 gm BAG 2 GM/50 ML BAG IVPB ONE (12:47)
[2024-02-07 13:27] VITALS: BP 134/97
[2024-02-08 13:04] LABS: Fungitell Qualitative Result Negative (Negative); Fungitell Quantitative Value 43 pg/mL (<60 pg/mL)
== END 2024-02-07 15:25 | disposition home or self-care (01) ==
LOC: ED 17:56 → SUATTDRO 02-06 00:27 → INTOOBSV 02-06 00:27 → EDHOLD 02-06 00:27 → MED 02-06 03:15
PROVIDERS: ADMIT Student in an Organized Health Care Education/Training Program; ATTEND Hospitalist

== ENCOUNTER 2024-08-30 10:59 | Inpatient (IN) ==
[2024-08-30 12:53] LABS: ABS Eosinophils 0.1 10^3/uL (0.0-0.5); ABS Lymphocytes 1.2 10^3/uL (1.0-4.8); ABS Monocytes 1.4 10^3/uL (0.0-1.1); ABS Neutrophils 7.7 10^3/uL (1.5-7.6); ABS Nucleated RBC 0.01 10^3/ul; Eosinophil % 0.8 %; Hematocrit 32.1 % (38-53); Hemoglobin 10.9 g/dL (13.2-16.3); Lymphocyte % 11.9 %; Mean Corpuscular Volume 88.1 fL (80-97); Mean Platelet Volume 7.2 fL (7.5-11.2); Nucleated Red Blood Cells % 0.1 %/100WBC (0.0-0.8); Platelet Count 242 10^3/uL (150-450); Red Blood Count 3.64 10^6/uL (4.06-5.63); Red Cell Distribution Width 14.6 % (12-17); White Blood Count 10.4 10^3/uL (3.6-10.2)
[2024-08-30 13:13] LABS: INR 1.21 (0.85-1.14)
[2024-08-30 13:15] LABS: Albumin 3.4 g/dL (3.2-5.2); Albumin/Globulin Ratio 1.5 (1-3); C Reactive Protein 236.77 mg/L (<8.01); Calcium 8.6 mg/dL (8.6-10.3); Creatinine, Serum 1.33 mg/dL (0.67-1.17); Globulin 2.3 g/dL (2-4); Potassium 3.9 mmol/L (3.5-5.0); Total Bilirubin 0.7 mg/dL (0.2-1.0); Total Protein 5.7 g/dL (6.4-8.9); eGFR CKD-EPI 62.3 (>60)
[2024-08-30] MEDS: Prochlorperazine 5 mg/ml 2 ml VIAL (10 mg) IV PRN (14:16)
[2024-08-30] MEDS: Dexamethasone IV 4 MG/ML VIAL 1 ml VIAL IV SLOW PU ONE (14:19)
[2024-08-30 14:24] LABS: High Sensitivity Troponin 1 Hr 2419 pg/mL (<20)
[2024-08-30] MEDS: Iohexol 350 (CONTRAST) 500 ML MDV IV ONE (14:36)
[2024-08-30] MEDS: NS 0.9% 1000 ml BAG 1,000 ML IV ONE (14:57)
[2024-08-30] MEDS ORDERED: Vancomycin 1,500 MG in NS 0.9% 250 ml 250 ML IVPB SCH (16:00)
[2024-08-30] MEDS: Piperacillin/Tazobac 3.375 BAG 3.375 GM/100 ML BAG IV ONE (16:41)
[2024-08-30] MEDS ORDERED: Albuterol/Ipratropium NEB.SOL (2.5/0.5 MG) 3 ML NEB.SOLN INH PRN (18:23)
[2024-08-30] MEDS ORDERED: Nicotine GUM 4MG FRUIT FLAVOR PO PRN (19:02)
[2024-08-30] MEDS ORDERED: Sulfur Hexaflouride MICROSPHR 25 MG VIAL IV PRN (19:13)
[2024-08-30] MEDS: methylPREDNISolone SOD SUCC 40 mg/ml 1 ml VIAL IV SCH (20:06)
[2024-08-30] MEDS: Buprenorp/Nalox 8-2 MG FILM SL SCH (20:06)
[2024-08-30] MEDS: FLUTICAS/UMECLI/VILANT 100-62.5-25 MDI (NF) INH SCH (21:11)
[2024-08-30] MEDS: diPHENhydraMINE CREAM 2%(NF) 28 gm TUBE TOPICAL SCH (22:04)
[2024-08-31 07:39] LABS: ABS Lymphocytes 0.9 10^3/uL (1.0-4.8); ABS Monocytes 0.4 10^3/uL (0.0-1.1); Eosinophil % 0.1 %; Hematocrit 33.2 % (38-53); Lymphocyte % 13.9 %; Mean Corpuscular Hemoglobin 29.4 pg (27-33); Mean Corpuscular Hgb Conc 33.2 g/dL (31-36); Mean Corpuscular Volume 88.6 fL (80-97); Mean Platelet Volume 7.5 fL (7.5-11.2); Nucleated Red Blood Cells % 0.1 %/100WBC (0.0-0.8); Platelet Count 254 10^3/uL (150-450); Red Blood Count 3.75 10^6/uL (4.06-5.63); Red Cell Distribution Width 14.5 % (12-17); White Blood Count 6.3 10^3/uL (3.6-10.2)
[2024-08-31 08:04] LABS: Calcium 8.1 mg/dL (8.6-10.3); Creatinine, Serum 1.29 mg/dL (0.67-1.17); Magnesium 1.4 mg/dL (1.9-2.7); Potassium 4.7 mmol/L (3.5-5.0); eGFR CKD-EPI 64.7 (>60)
[2024-08-31] MEDS: Nicotine PATCH 21 MG/24 HR PATCH TRANSDERM SCH (08:35)
[2024-08-31] MEDS: Magnesium Sulfate 2 gm BAG 2 GM/50 ML BAG IVPB ONE ×2 (09:38→15:16)
[2024-08-31] MEDS: FLUTICAS/UMECLI/VILANT 100-62.5-25 MDI (NF) INH SCH (17:23)
[2024-08-31] MEDS ORDERED: cefTRIAXone 1 gm/50 mL D5W 1 GM/50 ML BAG IV SCH (18:30)
[2024-08-31] MEDS: Azithromycin 500 mg/250 ml NS 500 MG/250 ML BAG IVPB SCH (22:39)
[2024-08-31] MEDS: cefTRIAXone 1 gm/50 mL D5W 1 GM/50 ML BAG IV SCH (23:53)
[2024-09-01 06:36] LABS: ABS Basophils 0.1 10^3/uL (0.0-0.1); ABS Lymphocytes 2.2 10^3/uL (1.0-4.8); ABS Neutrophils 9.2 10^3/uL (1.5-7.6); ABS Nucleated RBC 0.01 10^3/ul; Eosinophil % 0.1 %; Hematocrit 30.4 % (38-53); Hemoglobin 10.2 g/dL (13.2-16.3); Lymphocyte % 17.8 %; Mean Corpuscular Hemoglobin 29.6 pg (27-33); Mean Corpuscular Hgb Conc 33.5 g/dL (31-36); Mean Corpuscular Volume 88.3 fL (80-97); Mean Platelet Volume 7.4 fL (7.5-11.2); Nucleated Red Blood Cells % 0.1 %/100WBC (0.0-0.8); Platelet Count 256 10^3/uL (150-450); Red Blood Count 3.44 10^6/uL (4.06-5.63); Red Cell Distribution Width 14.7 % (12-17); White Blood Count 12.5 10^3/uL (3.6-10.2)
[2024-09-01 07:01] LABS: Calcium 8.2 mg/dL (8.6-10.3); Creatinine, Serum 1.12 mg/dL (0.67-1.17); Magnesium 1.9 mg/dL (1.9-2.7); Potassium 3.9 mmol/L (3.5-5.0); eGFR CKD-EPI 76.6 (>60)
[2024-09-01] MEDS ORDERED: Albuterol 2.5mg/3 ml (0.083%) NEB.SOLN INH PRN (09:35)
[2024-09-01] MEDS: Magnesium Sulfate IV 1GM/100ML 1 GM/100 ML BAG IV ONE ×2 (09:56→11:24)
[2024-09-01] MEDS ORDERED: Albuterol/Ipratropium NEB.SOL (2.5/0.5 MG) 3 ML NEB.SOLN INH SCH (10:00)
[2024-09-01 15:02] LABS: TB1 Ag minus Nil Result -0.01 IU/mL; TB2 Ag minus Nil Result -0.01 IU/mL
[2024-09-01 15:09] LABS: QuantiferonTb Gold Plus Result Negative (Negative)
[2024-09-02 15:43] LABS: Mycoplasma pneumoniae IgG Ab Positive (Negative); Mycoplasma pneumoniae IgM Ab Negative (Negative)
[2024-09-04 06:08] LABS: ABS Eosinophils 0.1 10^3/uL (0.0-0.5); ABS Lymphocytes 3.7 10^3/uL (1.0-4.8); ABS Monocytes 1.3 10^3/uL (0.0-1.1); ABS Neutrophils 11.6 10^3/uL (1.5-7.6); ABS Nucleated RBC 0.03 10^3/ul; Eosinophil % 0.6 %; Hematocrit 40.6 % (38-53); Hemoglobin 13.3 g/dL (13.2-16.3); Lymphocyte % 22.1 %; Mean Corpuscular Hemoglobin 28.9 pg (27-33); Mean Corpuscular Hgb Conc 32.7 g/dL (31-36); Mean Corpuscular Volume 88.3 fL (80-97); Mean Platelet Volume 7.3 fL (7.5-11.2); Nucleated Red Blood Cells % 0.2 %/100WBC (0.0-0.8); Platelet Count 365 10^3/uL (150-450); Red Cell Distribution Width 14.7 % (12-17); White Blood Count 16.7 10^3/uL (3.6-10.2)
[2024-09-04] MEDS: Magnesium Sulf 4 GM/100 ML IV 4,000 MG/100 ML BAG IVPB ONE (08:10)
[2024-09-05 06:40] LABS: Hematocrit 39.2 % (38-53); Hemoglobin 12.9 g/dL (13.2-16.3); Mean Corpuscular Hgb Conc 32.9 g/dL (31-36); Mean Corpuscular Volume 87.9 fL (80-97); Mean Platelet Volume 7.1 fL (7.5-11.2); Platelet Count 397 10^3/uL (150-450); Red Blood Count 4.46 10^6/uL (4.06-5.63); Red Cell Distribution Width 14.8 % (12-17); White Blood Count 13.8 10^3/uL (3.6-10.2)
[2024-09-05 06:59] LABS: Calcium 9.1 mg/dL (8.6-10.3); Creatinine, Serum 1.62 mg/dL (0.67-1.17); Magnesium 1.9 mg/dL (1.9-2.7); Potassium 4.6 mmol/L (3.5-5.0); eGFR CKD-EPI 49.2 (>60)
[2024-09-05] MEDS: Lactated Ringers 1000 ml BAG 1,000 ML IV SCH (08:59)
[2024-09-05] MEDS: Magnesium Sulfate IV 1GM/100ML 1 GM/100 ML BAG IV ONE (08:59)
[2024-09-05 14:22] LABS: Creatinine, Serum 1.48 mg/dL (0.67-1.17); Potassium 5.1 mmol/L (3.5-5.0); eGFR CKD-EPI 54.8 (>60)
[2024-09-05] MEDS: NS 0.9% 1000 ml BAG 1,000 ML IV SCH (20:48)
[2024-09-06 06:47] LABS: ABS Eosinophils 0.1 10^3/uL (0.0-0.5); ABS Lymphocytes 3.7 10^3/uL (1.0-4.8); ABS Monocytes 1.3 10^3/uL (0.0-1.1); ABS Neutrophils 7.3 10^3/uL (1.5-7.6); ABS Nucleated RBC 0.01 10^3/ul; Eosinophil % 1.1 %; Hematocrit 37.8 % (38-53); Hemoglobin 12.5 g/dL (13.2-16.3); Lymphocyte % 29.9 %; Mean Corpuscular Hemoglobin 29.2 pg (27-33); Mean Corpuscular Hgb Conc 33.1 g/dL (31-36); Mean Corpuscular Volume 88.3 fL (80-97); Mean Platelet Volume 7.3 fL (7.5-11.2); Nucleated Red Blood Cells % 0.1 %/100WBC (0.0-0.8); Platelet Count 367 10^3/uL (150-450); Red Blood Count 4.28 10^6/uL (4.06-5.63); Red Cell Distribution Width 14.7 % (12-17); White Blood Count 12.5 10^3/uL (3.6-10.2)
[2024-09-06 07:00] LABS: Calcium 8.4 mg/dL (8.6-10.3); Creatinine, Serum 1.35 mg/dL (0.67-1.17); Magnesium 1.7 mg/dL (1.9-2.7); Potassium 4.4 mmol/L (3.5-5.0); eGFR CKD-EPI 61.2 (>60)
[2024-09-06] MEDS: Magnesium Sulfate 2 gm BAG 2 GM/50 ML BAG IVPB ONE (08:30)
[2024-09-06] MEDS: Magnesium Sulfate IV 1GM/100ML 1 GM/100 ML BAG IV ONE (09:56)
[2024-09-06 10:07] VITALS: BP 118/77
== END 2024-09-06 12:35 | disposition home or self-care (01) | DRG 139 ==
LOC: EDHOLD 10:59 → ED 10:59 → MEDTELE 17:54
PROVIDERS: ADMIT Student in an Organized Health Care Education/Training Program; ATTEND Student in an Organized Health Care Education/Training Program

== ENCOUNTER 2024-10-28 16:29 | Observation (INO) ==
[2024-10-28] MEDS: Iodixanol 320 (CONTRAST) 100 ML SDV IV ONE (16:51)
[2024-10-28 16:53] LABS: ABS Eosinophils 0.3 10^3/uL (0.0-0.5); ABS Lymphocytes 3.4 10^3/uL (1.0-4.8); ABS Monocytes 0.7 10^3/uL (0.0-1.1); ABS Neutrophils 3.9 10^3/uL (1.5-7.6); Hemoglobin 14.2 g/dL (13.2-16.3); Mean Corpuscular Hemoglobin 30.1 pg (27-33); Mean Corpuscular Hgb Conc 33.8 g/dL (31-36); Nucleated Red Blood Cells % 0.1 %/100WBC (0.0-0.8); Platelet Count 270 10^3/uL (150-450); Red Blood Count 4.72 10^6/uL (4.06-5.63); Red Cell Distribution Width 14.8 % (12-17); White Blood Count 8.4 10^3/uL (3.6-10.2)
[2024-10-28 17:02] LABS: Activated Partial Thrombo Time 36.6 seconds (26.0-38.0)
[2024-10-28 17:20] LABS: Albumin 4.3 g/dL (3.5-5.7); Albumin/Globulin Ratio 1.8 (1-3); Calcium 9.8 mg/dL (8.6-10.3); Creatinine, Serum 1.73 mg/dL (0.67-1.17); Direct Bilirubin 0.1 mg/dL (0.03-0.18); Globulin 2.4 g/dL (2-4); HDL Cholesterol 38.3 mg/dL; Indirect Bilirubin 0.2 mg/dL (0.3-1.0); Total Bilirubin 0.3 mg/dL (0.2-1.0); Total Protein 6.7 g/dL (6.4-8.9); eGFR CKD-EPI 45.5 (>60)
[2024-10-28] MEDS: Lactated Ringers 1000 ml BAG IV.FLUID IV ONE (17:23)
[2024-10-28] MEDS ORDERED: Sulfur Hexaflouride MICROSPHR 25 MG VIAL IV PRN (19:36)
[2024-10-28 20:19] LABS: Urine Appearance Clear; Urine Bilirubin Negative (Negative); Urine Blood Negative (Negative); Urine Color Yellow; Urine Glucose Negative (Negative); Urine Ketones Negative (Negative); Urine Nitrite Negative (Negative); Urine Protein Trace (Negative); Urine Specific Gravity 1.048 (1.002-1.030); Urine Urobilinogen Negative (Negative); Urine pH 6.5 (5.0-8.0)
[2024-10-28] MEDS: Enoxaparin 40 MG/0.4 ML SYR SUBCUT SCH (20:20)
[2024-10-28] MEDS ORDERED: Naloxone Nasal Spray 4 MG/0.1 ML NASAL.SPR INTRANASAL PRN (20:44)
[2024-10-28 21:10] LABS: TSH Ultra Thyroid Stim Horm 0.28 mcIU/mL (0.34-5.60)
[2024-10-28] MEDS ORDERED: Albuterol HFA INHALER 8 gm MDI INH PRN (21:25)
[2024-10-28] MEDS: Buprenorp/Nalox 8-2 MG FILM SL SCH (21:34)
[2024-10-28] MEDS ORDERED: Nicotine GUM 4MG FRUIT FLAVOR PO PRN (22:45)
[2024-10-28] MEDS: CMCS: FLUTICAS/UMECLI/VILANT 100-62.5-25 MDI (NF) INH SCH (22:57)
[2024-10-28 23:57] LABS: T4, Total 10.7 mcg/dL (6.09-12.23)
[2024-10-29 07:08] LABS: Folate > 20.00 ng/mL (5.90-24.80)
[2024-10-29 07:09] LABS: Vitamin B12 596 pg/mL (180-914)
[2024-10-29 07:12] LABS: Vitamin D Total 25(OH) 18.3 ng/mL (20-50)
[2024-10-29 08:26] LABS: ABS Basophils 0.1 10^3/uL (0.0-0.1); ABS Eosinophils 0.3 10^3/uL (0.0-0.5); ABS Lymphocytes 3.1 10^3/uL (1.0-4.8); ABS Monocytes 0.7 10^3/uL (0.0-1.1); ABS Neutrophils 2.7 10^3/uL (1.5-7.6); ABS Nucleated RBC 0.01 10^3/ul; Eosinophil % 4.3 %; Hematocrit 36.3 % (38-53); Hemoglobin 12.2 g/dL (13.2-16.3); Lymphocyte % 44.8 %; Mean Corpuscular Hgb Conc 33.7 g/dL (31-36); Mean Corpuscular Volume 88.9 fL (80-97); Mean Platelet Volume 7.4 fL (7.5-11.2); Nucleated Red Blood Cells % 0.1 %/100WBC (0.0-0.8); Platelet Count 212 10^3/uL (150-450); Red Blood Count 4.08 10^6/uL (4.06-5.63); Red Cell Distribution Width 14.8 % (12-17); White Blood Count 6.9 10^3/uL (3.6-10.2)
[2024-10-29 09:49] LABS: Calcium 8.6 mg/dL (8.6-10.3); Creatinine, Serum 1.39 mg/dL (0.67-1.17); Magnesium 1.6 mg/dL (1.9-2.7); Potassium 4.8 mmol/L (3.5-5.0); eGFR CKD-EPI 59.1 (>60)
[2024-10-29 13:45] VITALS: BP 117/75
[2024-10-31 09:33] LABS: Urine Alcohol Negative mg/dL (Cutoff: 10); Urine Barbiturates Negative; Urine Benzodiazepines Presumptive Positive ng/mL; Urine Cocaine Negative; Urine Methadone Negative (Negative); Urine Opiates Negative (Negative); Urine Phencyclidine Negative ng/mL (Cutoff: 25); Urine Tetrahydrocannabinol Presumptive Positive ng/mL (Cutoff: 50)
[2024-11-01 13:51] LABS: 7-amnioflunitrazepam LC-MS/MS Negative ng/mL (Cutoff: 10); Alpha OH Triazolam by LC-MS/MS Negative ng/mL (Cutoff: 10); Alpha-Hydroxyalprazolam LC-MS 616 ng/mL (Cutoff: 10); Alpha-OH Midazolam LC-MS/MS Negative ng/mL (Cutoff: 10); Alprazolam LC-MS/MS 451 ng/mL (Cutoff: 10); Benzodiazepines Interpretation Positive.; Chlordiazepoxide by LC-MS/MS Negative ng/mL (Cutoff: 10); Clobazam LC-MS/MS Negative ng/mL (Cutoff: 10); Lorazepam by LC-MS/MS Negative ng/mL (Cutoff: 10); Oxazepam by LC-MS/MS Negative ng/mL (Cutoff: 10); Prazepam by LC-MS/MS Negative ng/mL (Cutoff: 10); Temazepam by LC-MS/MS Negative ng/mL (Cutoff: 10); Triazolam by LC-MS/MS Negative ng/mL (Cutoff: 10); Zolpidem Phenyl-4-Carboxylic Negative ng/mL (Cutoff: 10); Zolpidem by LC-MS/MS Negative ng/mL (Cutoff: 10)
== END 2024-10-29 14:30 | disposition home or self-care (01) ==
LOC: EDHOLD 16:29 → ED 16:29 → MEDTELE 21:23
PROVIDERS: ADMIT Internal Medicine; ATTEND Internal Medicine